=== PATIENT | male | born 1960 | race African-American/Black ===

== ENCOUNTER 2018-12-05 19:02 | Inpatient (IN) | payer MEDICARE, OTHER ==
--- NOTE | 2018-12-05 19:39 | ED Physician Chart ---
ED Chief Complaint/HPI - Patient Information Date Seen:: 12/05/18 Time Seen:: 19:10 Chief Complaint:: Weakness History of Present Illness:: onset x 3 days of weakness, failure to thrive, and poor oral intake; no report of LOC, ALOC, AMS, H/As, S/T, neck pain, cough, C/P, SOB, Abd. Pain, N/V/D/C, fever, chills, or urinary s/s Allergies:: Allergies Allergy/AdvReac Type Severity Reaction Status Date / Time No Known Allergies Allergy Verified 12/05/18 19:14 Vitals:: Vital Signs - 8 hr 12/05/18 19:14 Temp 98.9 F HR 75 RR 16 BP 140/95 O2 Sat % 99 Historian:: Patient, EMS Review:: Nurse's Note Reviewed, Old Chart Reviewed, EMS run form Reviewed ED Review of Systems - Review of Systems General/Constitutional: No fever, No chills, No weight loss, Weakness, No diaphoresis, No edema, No loss of appetite Skin: No skin lesions, No rash, No bruising Head: No headache, No light-headedness Eyes: No loss of vision, No pain, No diplopia ENT: No earache, No nasal drainage, No sore throat, No tinnitus Neck: No neck pain, No swelling, No thyromegaly, No stiffness, No mass noted Cardio Vascular: No chest pain, No palpitations, No PND, No orthopnea, No edema Pulmonary: No SOB, No cough, No sputum, No wheezing GI: No nausea, No vomiting, No diarrhea, No pain, No melena, No hematochezia, No constipation, No hematemesis G/U: No dysuria, No frequency, No hematuria, No nacturia Musculoskeletal: No bone or joint pain, No back pain, No muscle pain Endocrine: No polyuria, No polydipsia Psychiatric: No prior psych history, No depression, No anxiety, No suicidal ideation, No homicidal ideation, No auditory hallucination, No visual hallucination Hematopoietic: No bruising, No lymphadenopathy Allergic/Immuno: No urticaria, No angioedema Neurological: No syncope, No focal symptoms, Weakness, No paresthesia, No headache, No seizure, No dizziness, No confusion, No vertigo ED Past Medical History - Past Medical History Obtainable: Yes Past Medical History: HTN, Dyslipidemia Family History: HTN Social History: Non Smoker, No Alcohol, No Drug Use, Single, Care Facility Surgical History: None Psychiatricy History: None Medication: Reviewed Family Medical History - Family Member Mother History Unknown: Yes ED Physical Exam - Physical Examination General/Constitutional: Awake, Well-developed, well-nourished, Alert, No distress, GCS 15, Non-toxic appearing, Ambulatory Head: Atraumatic Eyes: Lids, conjuctiva normal, PERRL, EOMI Skin: Nl inspection, No rash, No skin lesions, No ecchymosis, No lymphadenopathy Other Skin comments:: Poor Turgor with dry MM ENMT: External ears, nose nl, TM canals nl, Nasal exam nl, Lips, teeth, gums nl , Oropharynx nl, Tonsils nl Neck: Nontender, Full ROM w/o pain, No JVD, No nuchal rigidity, No bruit, No mass, No stridor Respiratory: Nl effort/Exclusion, Clear to Auscultation, No Wheeze/Rhonchi/Rales Cardio Vascular: RRR, No murmur, gallop, rubs, NL S1 S2, Carotid/Femoral/Distal pulses equal bilaterally GI: No tenderness/rebounding/guarding, No organomegaly, No hernia, Normal BS's, Nondistended, No mass/bruits, No McBurney tenderness, Rectum exam nl Other GI comments:: no pulsatile masses : No CVA tenderness Extremities: No tenderness or effusion, Full ROM, normal strength in all extremities, No edema, Normal digits & nails Neuro/Psych: Alert/oriented, DTR's symmetric, Normal sensory exam, Normal motor strength, Judgement/insight normal, Mood normal, Normal gait, No focal deficits Misc: Normal back, No paraspinal tenderness ED Labs/Radiology/EKG Results - Lab Results Comments:: Reviewed - Radiology Results Comments:: CXR: NAD - EKG Interpretations EKG Time:: 19:47 Rate & Rhythm: 74; NSR Comments:: non-specific st-t changes ED Septic Shock - . Is Septic Shock (SBP<90, OR Lactate>4 mmol\L) present?: No - <6hrs of presentation: Vital Signs: Vital Signs - 8 hr 12/05/18 19:14 Temp 98.9 F HR 75 RR 16 BP 140/95 O2 Sat % 99 ED Reassessment (Disposition) - Reassessment Reassessment Condition:: Improved - Diagnosis Diagnosis:: Weakness; Failure to Thrive; Poor Oral Intake; HTN; Dehydration - Aftercare/Follow up Instructions Aftercare/Follow-Up Instructions:: Counseled pt regarding lab results/diagnosis & need follow up, Counseled pt & family regarding lab results/diagnosis & need follow up - Patient Disposition Discharge/Transfer:: Acute Care w/in this hosp Accepting Physician:: Dr. Dilan Yi Time Called:: 2099 Time Responded:: 21:00 Admitted to:: Med/Surg Spoke to:: Dr. Dilan Yi Admitting Medical Physician:: Dr. Dilan Yi Condition at Disposition:: Stable, Improved
[2018-12-05 19:58] LABS: % BASOPHILS 0.3 % (0.0-2.0); % EOSINOPHILS 2.8 % (0.0-5.0); % LYMPHOCYTES 18.5 % (20.0-50.0); % MONOCYTES 4.5 % (2.0-10.0); % NEUTROPHILS 73.9 % (40.0-80.0); EOSINOPHILE ABSOLUTE 0.2 Th/cmm (0.1-0.4); HEMATOCRIT 33.7 % (41.0-60); LYMPHOCYTE ABSOLUTE 1.3 Th/cmm (1.5-3.0); MEAN CELL VOLUME 86.4 fl (80-99); MEAN CORPUSCULAR HEMOGLOBIN 28.3 pg (26.0-30.0); MEAN CORPUSCULAR HGB CONC 32.7 pg (28.0-36.0); MEAN PLATELET VOLUME 7.2 fl; MONOCYTE ABSOLUTE 0.3 Th/cmm (0.3-1.0); NEUTROPHILE ABSOLUTE 5.3 Th/cmm (1.8-8.0); PLATELET COUNT 300 Th/cmm (150-400); RED CELL DISTRIBUTION WIDTH 14.8 % (11.5-20.0); WHITE BLOOD COUNT 7.1 Th/cmm (4.8-10.8)
[2018-12-05 20:10] LABS: INR 0.95 (0.5-1.4); PROTHROMBIN TIME (TEST) 9.9 SECONDS (9.5-11.5)
[2018-12-05 20:11] LABS: ALB/GLOB RATIO 1.1 (1.0-1.8); ALBUMIN 4.1 gm/dL (4.2-5.5); ALKALINE PHOSPHATASE 62 U/L (34-104); ANION GAP 11.4 (7.0-16.0); BILIRUBIN,TOTAL 0.5 mg/dL (0.3-1.0); BUN - UREA NITROGEN 24 mg/dL (7-25); CALCIUM SERUM 9.6 mg/dL (8.6-10.3); CARBON DIOXIDE 24.8 mEq/L (21.0-31.0); CHLORIDE 106 mEq/L (98-107); CREATININE - SERUM 1.3 mg/dL (0.7-1.3); CREATININE KINASE 137 U/L (30-223); GFR AFRICAN-AMERICAN > 60.0 ml/min (>90); GFR NON AFRICAN-AMERICAN > 60.0 ml/min; GLUCOSE 134 mg/dL (70-105); POTASSIUM SERUM 4.2 mEq/L (3.5-5.1); SGOT 11 U/L (13-39); SGPT/ALT 16 U/L (7-52); SODIUM SERUM 138 mEq/L (136-145); TOTAL PROTEIN,SERUM 7.7 gm/dL (6.0-8.3)
[2018-12-05 20:24] LABS: TROP I < 0.01 ng/mL (0.01-0.05)
[2018-12-05 20:57] LABS: URINE SOURCE MIDSTREAM
[2018-12-05 20:59] LABS: URINE BILIRUBIN NEGATIVE (NEGATIVE); URINE BLOOD MODERATE (NEGATIVE); URINE GLUCOSE (UA) NEGATIVE (NEGATIVE); URINE KETONE NEGATIVE (NEGATIVE); URINE LEUKOCYTE ESTERASE NEGATIVE (NEGATIVE); URINE MICROSCOPIC INDICATED? YES; URINE NITRATE NEGATIVE (NEGATIVE); URINE PH 5.5 (4.6 - 8.0); URINE PROTEIN 30 mg/dL (NEGATIVE); URINE UROBILINOGEN 0.2 E.U./dL (0.2 - 1.0)
[2018-12-05] MEDS ORDERED: Sodium Chloride 0.9% 1,000 ML IV ONE (21:02)
[2018-12-05 21:16] LABS: URINE CLARITY CLEAR (CLEAR); URINE COLOR STRAW
[2018-12-05 21:22] LABS: URINE BACTERIA NONE SEEN /hpf (NONE SEEN); URINE EPITHELIAL CELLS RARE /lpf (FEW); URINE RBC NONE SEEN /hpf (0-5); URINE WBC NONE SEEN /hpf (0-5)
[2018-12-05 21:25] LABS: AMYLASE SERUM 164 U/L (29-103); LIPASE 133 U/L (11-82)
[2018-12-05] MEDS ORDERED: Pneumococcal Vaccine 0.5 mL Vial IM ONE (23:05)
[2018-12-06 06:39] LABS: % BASOPHILS 0.5 % (0.0-2.0); % EOSINOPHILS 2.7 % (0.0-5.0); % LYMPHOCYTES 32.3 % (20.0-50.0); % MONOCYTES 6.2 % (2.0-10.0); % NEUTROPHILS 58.3 % (40.0-80.0); EOSINOPHILE ABSOLUTE 0.1 Th/cmm (0.1-0.4); HEMATOCRIT 32.2 % (41.0-60); HEMOGLOBIN 10.5 gm/dL (12-16); LYMPHOCYTE ABSOLUTE 1.7 Th/cmm (1.5-3.0); MEAN CELL VOLUME 85.7 fl (80-99); MEAN CORPUSCULAR HEMOGLOBIN 27.9 pg (26.0-30.0); MEAN CORPUSCULAR HGB CONC 32.5 pg (28.0-36.0); MONOCYTE ABSOLUTE 0.3 Th/cmm (0.3-1.0); NEUTROPHILE ABSOLUTE 3.2 Th/cmm (1.8-8.0); PLATELET COUNT 331 Th/cmm (150-400); RED BLOOD COUNT 3.75 Mil/cmm (4.30-5.70); RED CELL DISTRIBUTION WIDTH 14.7 % (11.5-20.0); WHITE BLOOD COUNT 5.3 Th/cmm (4.8-10.8)
[2018-12-06 07:04] LABS: BUN - UREA NITROGEN 22 mg/dL (7-25); CALCIUM SERUM 9.1 mg/dL (8.6-10.3); CARBON DIOXIDE 24.1 mEq/L (21.0-31.0); CHLORIDE 107 mEq/L (98-107); CREATININE - SERUM 1.4 mg/dL (0.7-1.3); GFR AFRICAN-AMERICAN > 60.0 ml/min (>90); GFR NON AFRICAN-AMERICAN 55.3 ml/min; GLUCOSE 124 mg/dL (70-105); POTASSIUM SERUM 4.1 mEq/L (3.5-5.1); SODIUM SERUM 139 mEq/L (136-145)
--- NOTE | 2018-12-06 08:29 | Diagnostic Imaging Report ---
CHEST X-RAY: AP view INDICATION: pain COMPARISON: None FINDINGS: Increased right basal lung markings are seen along the right heart border. No pleural effusions. Heart size is normal. Degenerative changes of the spine are noted. IMPRESSION: Increased right basal lung markings along the right heart border. Findings may be due to atelectasis however infiltrate in the pneumonitis or postobstructive pneumonitis cannot be excluded. Short-term follow-up is recommended.
--- NOTE | 2018-12-07 15:58 | History & Physical ---
ADMIT DATE: 12/05/2018 CHIEF COMPLAINT: Generalized weakness, failure to thrive, and poor oral intake. However, the patient was admitted with this diagnosis, but he was able to eat more than 100% of his calorie intake. He is alert and awake. During the hospital stay, his blood pressure was noted to be very high, it was 100 and it went up to 192/85. Vasotec and clonidine were started. Cardiology consult was called. PAST MEDICAL HISTORY: Includes questionable hypertension, was not on any medication, and dyslipidemia. FAMILY HISTORY: Hypertension. SOCIAL HISTORY: The patient lives at nursing facility. No history of smoking, alcohol or drug use. He is single. PAST SURGICAL HISTORY: None. PSYCHIATRIC HISTORY: None. FAMILY HISTORY: As mentioned above, hypertension. REVIEW OF SYSTEMS: GENERAL: The patient denies any fever or chills. HEENT: No diplopia, no photophobia, no sore throat. RESPIRATORY: No cough, no shortness of breath. CVS: No chest pain. No palpitation. GASTROINTESTINAL: No nausea, no vomiting, no diarrhea, no constipation. GENITOURINARY: No dysuria. NEUROLOGIC: No headache, no dizziness, no focal weakness. PHYSICAL EXAMINATION: VITAL SIGNS: Current vital signs shows temperature is 98.2, pulse 78, respirations 18, blood pressure is 157/63, oxygen saturation 98%. GENERAL: The patient is comfortable lying in the bed, not in acute distress. HEENT: Head is normocephalic, atraumatic. Oral cavity moist, pink tongue. NECK: Supple, no JVD, no carotid bruit. Trachea midline. CHEST: Bilateral vesicular breath sounds. No crackles or wheezing. No adventitious sounds. HEART: S1, S2 within normal limit. Loud S1, S2 heart sounds. No murmur, no gallop. ABDOMEN: Soft, nontender, nondistended. Bowel sounds present. EXTREMITIES: No cyanosis, no clubbing, no edema. NEUROLOGICAL: Alert and awake, oriented x 3. No focal deficit. LABORATORY DATA: Current lab shows WBC of 5300, hemoglobin 10.5, hematocrit 32.2, platelets are 331,000, neutrophils 58.3%. Sodium 139, potassium 4.1, chloride 107, bicarbonate is 24, BUN is 22, creatinine 1.4, glucose is 124. Blood cultures are negative. Chest x-ray shows no acute disease. IMPRESSION: 1. Emergent hypertension. There is a mild azotemia. 2. Azotemia. 3. Suspect pneumonia. 4. Dyslipidemia. PLAN AND RECOMMENDATIONS: We will continue losartan and Vasotec. Add Levaquin. We will monitor for 1-2 days and depending on the clinical scenario we will decide further plan. Consultation called, Dr. Eugene Yi. JOB# [id number]
[2018-12-07] MEDS: Levofloxacin 500mg/100mL 500 MG/100 ML BAG IV SCH (17:52)
--- NOTE | 2018-12-08 02:04 | Consultation ---
DATE OF CONSULTATION: 12/06/[address] Jesse Yi. HISTORY OF PRESENT ILLNESS: This is a 58-year-old -[place] male patient who was brought to the hospital because of poor appetite and failure to thrive. In the Emergency Room, the patient was found to have uncontrolled hypertension, anemia, diabetes, and CKD, stage II. Following this, the patient is admitted. Cardiac consult is requested. PAST MEDICAL HISTORY: Hypertension; anemia; chronic kidney disease, stage II; and diabetes mellitus type 2. FAMILY HISTORY: Unremarkable. SOCIAL HISTORY: No history of smoking, alcohol abuse. ALLERGIES: No known allergies. PHYSICAL EXAMINATION: VITAL SIGNS: Blood pressure 170/90, pulse 70, and respirations 20. HEAD: Normocephalic. No lumps or bumps. EYES: Pupils equal, reactive to light. Fundi show AV nicking, sclerae white, conjunctivae pink. NECK: Carotid 2+. Normal upstroke. JVD flat. Thyroid not palpable. Lymph nodes not palpable. CHEST: Shows increased AP diameter. No kyphosis, scoliosis. LUNGS: Bilateral bronchovesicular breath sounds. HEART: PMI fifth intercostal space with lateral to midclavicular line. S1, S2. No S3, S4, soft systolic murmur. ABDOMEN: Soft. Liver, spleen not palpable. No organomegaly. Bowel sounds active. NEUROLOGIC: Unremarkable. EXTREMITIES: Peripheral pulses 2+. No pedal edema. CLINICAL IMPRESSION: Hypertension, uncontrolled; iron deficiency anemia; diabetes mellitus type 2; and diabetic CKD, stage II. PLAN: The patient to get antihypertensive medication, control the diet. The patient has been advised further compliance of medication and diet for hypertension and diabetes. JOB# [id number]
--- NOTE | 2018-12-08 09:26 | Diagnostic Imaging Report ---
Renal ultrasound HISTORY: azotemia. COMPARISON: None Technique: Sonography of the kidneys and urinary bladder was performed in multiple planes. FINDINGS: The right kidney measures 11.2 x 7.1 cm. The left kidney measures 11.8 x 7.8 cm. No evidence of focal lesions or hydronephrosis. There is elevated post void residual bladder volume of 158 ML. IMPRESSION: No evidence of hydronephrosis Elevated postvoid residual bladder volume of 158 mL's. Clinical correlation and further assessment of this finding is recommended.
--- NOTE | 2018-12-08 13:47 | General Progress Note ---
Subjective - Review of Systems Service Date: 12/08/18 Subjective: Is no complaint of chest pain or shortness of breath Objective - Results Result Diagrams: 12/06/18 05:34 12/06/18 05:34 Recent Labs: Laboratory Last Values WBC 5.3 Th/cmm (4.8-10.8) 12/06/18 05:34 RBC 3.75 Mil/cmm (4.30-5.70) L 12/06/18 05:34 Hgb 10.5 gm/dL (12-16) L 12/06/18 05:34 Hct 32.2 % (41.0-60) L 12/06/18 05:34 MCV 85.7 fl (80-99) 12/06/18 05:34 MCH 27.9 pg (26.0-30.0) 12/06/18 05:34 MCHC Differential 32.5 pg (28.0-36.0) 12/06/18 05:34 RDW 14.7 % (11.5-20.0) 12/06/18 05:34 Plt Count 331 Th/cmm (150-400) 12/06/18 05:34 MPV 7.0 fl 12/06/18 05:34 Neutrophils % 58.3 % (40.0-80.0) 12/06/18 05:34 Lymphocytes % 32.3 % (20.0-50.0) 12/06/18 05:34 Monocytes % 6.2 % (2.0-10.0) 12/06/18 05:34 Eosinophils % 2.7 % (0.0-5.0) 12/06/18 05:34 Basophils % 0.5 % (0.0-2.0) 12/06/18 05:34 PT 9.9 SECONDS (9.5-11.5) 12/05/18 19:40 INR 0.95 (0.5-1.4) 12/05/18 19:40 PTT (Actin FS) 29.1 SECONDS (26.0-38.0) 12/05/18 19:40 Sodium 139 mEq/L (136-145) 12/06/18 05:34 Potassium 4.1 mEq/L (3.5-5.1) 12/06/18 05:34 Chloride 107 mEq/L (98-107) 12/06/18 05:34 Carbon Dioxide 24.1 mEq/L (21.0-31.0) 12/06/18 05:34 Anion Gap 12.0 (7.0-16.0) 12/06/18 05:34 BUN 22 mg/dL (7-25) 12/06/18 05:34 Creatinine 1.4 mg/dL (0.7-1.3) H 12/06/18 05:34 Est GFR ( Amer) > 60.0 ml/min (>90) 12/06/18 05:34 Est GFR (Non-Af Amer) 55.3 ml/min 12/06/18 05:34 BUN/Creatinine Ratio 15.7 12/06/18 05:34 Glucose 124 mg/dL (70-105) H 12/06/18 05:34 Whole Bld Lactic Acid 0.85 mmol/L (0.60-1.99) 12/05/18 19:40 Calcium 9.1 mg/dL (8.6-10.3) 12/06/18 05:34 Total Bilirubin 0.5 mg/dL (0.3-1.0) 12/05/18 19:40 AST 11 U/L (13-39) L 12/05/18 19:40 ALT 16 U/L (7-52) 12/05/18 19:40 Alkaline Phosphatase 62 U/L (34-104) 12/05/18 19:40 Creatine Kinase 137 U/L (30-223) 12/05/18 19:40 Troponin I < 0.01 ng/mL (0.01-0.05) L 12/05/18 19:40 Total Protein 7.7 gm/dL (6.0-8.3) 12/05/18 19:40 Albumin 4.1 gm/dL (4.2-5.5) L 12/05/18 19:40 Globulin 3.6 gm/dL 12/05/18 19:40 Albumin/Globulin Ratio 1.1 (1.0-1.8) 12/05/18 19:40 Amylase 164 U/L (29-103) H 12/05/18 19:40 Lipase 133 U/L (11-82) H 12/05/18 19:40 TSH 0.90 uIU/ml (0.34-5.60) 12/05/18 19:21 Urine Source MIDSTREAM 12/05/18 20:15 Urine Color STRAW 12/05/18 20:15 Urine Clarity CLEAR (CLEAR) 12/05/18 20:15 Urine pH 5.5 (4.6 - 8.0) 12/05/18 20:15 Ur Specific [place] 1.025 (1.005-1.030) 12/05/18 20:15 Urine Protein 30 mg/dL (NEGATIVE) H 12/05/18 20:15 Urine Glucose (UA) NEGATIVE mg/dL (NEGATIVE) 12/05/18 20:15 Urine Ketones NEGATIVE mg/dL (NEGATIVE) 12/05/18 20:15 Urine Blood MODERATE (NEGATIVE) H 12/05/18 20:15 Urine Nitrate NEGATIVE (NEGATIVE) 12/05/18 20:15 Urine Bilirubin NEGATIVE (NEGATIVE) 12/05/18 20:15 Urine Urobilinogen 0.2 E.U./dL (0.2 - 1.0) 12/05/18 20:15 Ur Leukocyte Esterase NEGATIVE (NEGATIVE) 12/05/18 20:15 Urine RBC NONE SEEN /hpf (0-5) 12/05/18 20:15 Urine WBC NONE SEEN /hpf (0-5) 12/05/18 20:15 Ur Epithelial Cells RARE /lpf (FEW) 12/05/18 20:15 Urine Bacteria NONE SEEN /hpf (NONE SEEN) 12/05/18 20:15 RPR NONREACTIVE (NONREACTIVE) 12/05/18 19:40 - Physical Exam Vitals and I&O: Vital Signs Temp 97.8 F 12/08/18 12:00 Pulse 70 12/08/18 12:00 Resp 18 12/08/18 12:00 BP 140/82 12/08/18 12:00 Pulse Ox 98 12/08/18 12:00 Intake & Output 12/07/18 12/08/18 12/08/18 18:59 06:59 18:59 Intake Total 600 Output Total 30 Balance 570 Weight (lbs) 108.862 kg Intake: Oral 600 Tube Feeding 0 TPN/PPN 0 Blood Product 0 Lipid 0 Albumin 0 Other 0 Output: Gastric Drainage 0 Urine 30 Stool 0 Urine/Stool Mix 0 Emesis 0 Hemodialysis 0 Other 0 Other: # Voids 1 # Bowel Movements 0 Weight Source Chair scale Active Medications: Current Medications Enalapril Maleate (Vasotec) 5 mg PO DAILY [facility] Stop: 02/05/19 08:59 Last Admin: 12/08/18 09:31 Dose: 5 mg Levofloxacin (Levaquin Pb) 500 mg in 100 mls @ 100 mls/hr IV Q24HR ANGELA Stop: 02/05/19 15:59 Last Admin: 12/07/18 17:52 Dose: 100 mls/hr Losartan Potassium (Cozaar) 100 mg PO DAILY ANGELA Stop: 02/06/19 08:59 Last Admin: 12/08/18 09:31 Dose: 100 mg Assessment/Plan - Assessment Assessment: Hypertension And deficiency anemia Diabetes mellitus type 2 Diabetic C kidney stage II - Plan Plan: Continue present management control the blood pressure ambulate the patient Nutritional Asmnt/Malnutr-PDOC - Dietary Evaluation Malnutrition Findings (Please click <Entered> for more info): Nutritional Asmnt/Malnutrition Start: 12/06/18 14: 00 Text: Status: Complete Freq: Protocol: Document 12/06/18 14:00 [email or web address] (Rec: 12/06/18 14:08 [email or web address]) Nutritional Asmnt/Malnutrition Patient General Information Nutritional Screening High Risk Diagnosis failure to thrive, anemia Pertinent Medical Hx/Surgical Hx HTN, dyslipidemia Subjective Information Pt was seen eating lunch at time of visit. Pt doesn't like hospital food but said "don't stop sending it" because he will eat and reports good appetite. Lunch was seen almost finished. Current Diet Order/ Nutrition Support regular Pertinent Medications reviewed Pertinent Labs 12/06 cr 1.4, glucose 124 12/05 glucose 134, ab 4.1 Nutritional Hx/Data Height 1.78 m Height (Calculated Centimeters) 177.8 Current Weight (lbs) 108.862 kg Weight (Calculated Kilograms) 108.9 Weight (Calculated Grams) 051802.2 [place] Body Weight 166 Body Mass Index (BMI) 34.4 Weight Status Obese GI Symptoms GI Symptoms None Last BM not indicated Difficult in: None Food Allergies No Skin Integrity/Comment: intact Current %PO Good (75-100%) Estimated Nutritional Goals BEE in Kcals: Adj wt of IBW Calories/Kcals/Kg 25-30 Kcals Calculated 1502-0536 Protein: Adj wt of IBW Protein g/k.8-1 Protein Calculated 67-83 Fluid: ml 8612-5301 (1ml/kcal) Nutritional Problem No current Nutrition Prob Problem No nutrition diagnosis at this time Malnutrition Alert Is there a minimum of two criteria No selected? Query Text:Check all the applicable criteria. A minimum of two criteria are recommended for diagnosis of either severe or non-severe malnutrition. Malnutrition Related to Morbid Obesity Malnutrition related to morbid obesity No Intervention/Recommendation Comments 1. Continue with regular diet as ordered. 2. Monitor PO intake, wt, labs and skin integrity 3. F/U as moderate risk in 3-5 days Expected Outcomes/Goals Expected Outcomes/Goals 1. PO intake to meet at least 75% of nutritional needs. 2. Wt stability, skin to remain intact, labs to approach WNL. Reviewed by Tamela Fernandez RD
[2018-12-08] MEDS: Levofloxacin 500mg/100mL 500 MG/100 ML BAG IV SCH (15:44)
[2018-12-08 22:22] LABS: INF A SCREEN NEG FOR INF A; INF B SCREEN NEG FOR INF B
--- NOTE | 2018-12-08 22:39 | Consultation ---
DATE OF CONSULTATION: 12/08/2018 ATTENDING: Dr. Jesse Yi. PSYCHIATRIC CLINICAL NURSE SPECIALIST: Dr. Cj Poole. REASON FOR CONSULTATION: Acute kidney failure, electrolyte imbalance, and fluid management. HISTORY OF PRESENT ILLNESS: This is a 58-year-old -[place] male with past medical history of hypertension, who came in because of very poor appetite. Three days prior to admission, patient's appetite declined. As a consequence, he developed gradual weakness. A few hours prior to admission, his weakness eventually became generalized. He was then brought to the Emergency Room. His blood pressure upon arrival was 177/89. Chest x-ray showed possible pneumonitis or postobstructive pneumonitis. His BUN/creatinine were 24/1.3 and this increased to 22/1.4 today. Renal ultrasound revealed elevated postvoid residual of 158 mL. He had no fever or chills, nausea and vomiting, abdominal pain, diarrhea, bloating, dysuria, hematuria, and hematemesis. PAST MEDICAL HISTORY: 1. Essential hypertension. 2. Morbid obesity. 3. Dyslipidemia. MEDICATIONS: Currently on clonidine, enalapril, levofloxacin, losartan. ALLERGIES: No known drug allergies. SOCIAL HISTORY: He still smokes approximately 2 cigarettes a day. He drinks alcoholic beverages occasionally. 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 FAMILY HISTORY: Noncontributory to present illness. REVIEW OF SYSTEMS: GENERAL: As mentioned, he gradually developed weakness. Appetite had been poor. No fever or chills. HEENT: No mention of headaches, no dizziness. CARDIORESPIRATORY: History of hypertension. At this point, no chest pain, palpitations, diaphoresis, cough, or shortness of breath. GASTROINTESTINAL: No nausea and vomiting, abdominal pain or cramping, hematemesis, melena, hematochezia, nor diarrhea. However, he has a very poor appetite. MUSCULOSKELETAL: Multiple joint arthralgias. GENITOURINARY: History of mild kidney injury. At this point, there is no dysuria, hematuria, or retention. HEMATOLOGIC: He has anemia of chronic disease. NEUROPSYCHIATRIC: No syncopal episode. No seizure activity. He has some form of neuropathy. ENDOCRINE: No diabetes. No thyroid abnormalities, but has dyslipidemia. PHYSICAL EXAMINATION: GENERAL: The patient is alert, verbal, and comfortable. VITAL SIGNS: Blood pressure now is 162/80, pulse 71, temperature 97.6 degrees. SKIN: Poor turgor, warm, no rash, no jaundice appreciated. HEENT: Head normocephalic, atraumatic. Eyes: Extraocular muscles intact. Pupils equal, round, reactive to light and accommodates. Anicteric sclerae. Pale conjunctivae. Nose, midline nasal septum. Mouth, dry mucosa with adequate dentition. NECK: Supple, no adenopathy, no thyromegaly, no bruits. Trachea palpated in the midline. CHEST AND CARDIOVASCULAR: S1, S2, distant heart sounds, but no rub, murmur, nor gallop appreciated. Point of maximal impulse fifth intercostal space, left midclavicular line. No abdominal or femoral bruits appreciated. LUNGS: Equal expansion. No use of accessory muscles. No supraclavicular retractions. Decreased breath sounds, scattered rhonchi, but no rales nor wheezes appreciated. ABDOMEN: Obese, soft, positive for bowel sounds. No bruits either diastolic or systolic. RECTAL: The patient refused. GENITOURINARY: Normal appearing male genitalia. MUSCULOSKELETAL: No effusions present in his joints with adequate range of motion. EXTREMITIES: No evidence of edema, cyanosis nor clubbing with palpable femoral, popliteal, and dorsalis pedis pulses. NEUROLOGIC: The patient is alert, verbal, motor is 5/5. Cranial nerves 3-12 intact. Sensory intact. Labs revealed . IMPRESSION: 1. Acute kidney injury, MDRD GFR of greater than 60 mL per minute. Physical examination did reveal poor skin turgor with dry oral mucosa. His history included very poor oral intake, especially fluid intake. Urinalysis showed very concentrated urine. These factors are characteristics of underlying dehydration. Thus, he may have developed prerenal azotemia. Another consideration would include obstructive uropathy with history of elevated post-void residuals even though he does not have any evidence of bilateral hydronephrosis. 2. Elevated post-void residual. Possibly obstructive uropathy secondary to BPH or some form of tumor/mass versus a neurogenic bladder. 3. Essential hypertension. 4. Morbid obesity. 5. Dyslipidemia. PLAN: 1. Repeat bladder ultrasound to follow up residual volume. 2. Urine sodium, eosinophils, and creatinine. 3. Urine microalbumin to creatinine ratio. 4. Follow up electrolytes as well as hemoglobin A1c. 5. Avoid combination of ARB and ZACKERY inhibitor as much as possible. 6. Emphasized to the patient to stop smoking. 7. Encourage the patient to increase fluid intake. [facility]# [id number]
--- NOTE | 2018-12-09 02:49 | Infectious Disease Prog Note ---
Infectious Disease Subjective - Review of Systems Service Date: 12/08/18 Subjective: There is no new change, no fever. BP better Controlled. Infectious Disease Objective - Results Result Diagrams: 12/06/18 05:34 12/06/18 05:34 Recent Labs: Laboratory Last Values WBC 5.3 Th/cmm (4.8-10.8) 12/06/18 05:34 RBC 3.75 Mil/cmm (4.30-5.70) L 12/06/18 05:34 Hgb 10.5 gm/dL (12-16) L 12/06/18 05:34 Hct 32.2 % (41.0-60) L 12/06/18 05:34 MCV 85.7 fl (80-99) 12/06/18 05:34 MCH 27.9 pg (26.0-30.0) 12/06/18 05:34 MCHC Differential 32.5 pg (28.0-36.0) 12/06/18 05:34 RDW 14.7 % (11.5-20.0) 12/06/18 05:34 Plt Count 331 Th/cmm (150-400) 12/06/18 05:34 MPV 7.0 fl 12/06/18 05:34 Neutrophils % 58.3 % (40.0-80.0) 12/06/18 05:34 Lymphocytes % 32.3 % (20.0-50.0) 12/06/18 05:34 Monocytes % 6.2 % (2.0-10.0) 12/06/18 05:34 Eosinophils % 2.7 % (0.0-5.0) 12/06/18 05:34 Basophils % 0.5 % (0.0-2.0) 12/06/18 05:34 PT 9.9 SECONDS (9.5-11.5) 12/05/18 19:40 INR 0.95 (0.5-1.4) 12/05/18 19:40 PTT (Actin FS) 29.1 SECONDS (26.0-38.0) 12/05/18 19:40 Sodium 139 mEq/L (136-145) 12/06/18 05:34 Potassium 4.1 mEq/L (3.5-5.1) 12/06/18 05:34 Chloride 107 mEq/L (98-107) 12/06/18 05:34 Carbon Dioxide 24.1 mEq/L (21.0-31.0) 12/06/18 05:34 Anion Gap 12.0 (7.0-16.0) 12/06/18 05:34 BUN 22 mg/dL (7-25) 12/06/18 05:34 Creatinine 1.4 mg/dL (0.7-1.3) H 12/06/18 05:34 Est GFR ( Amer) > 60.0 ml/min (>90) 12/06/18 05:34 Est GFR (Non-Af Amer) 55.3 ml/min 12/06/18 05:34 BUN/Creatinine Ratio 15.7 12/06/18 05:34 Glucose 124 mg/dL (70-105) H 12/06/18 05:34 Whole Bld Lactic Acid 0.85 mmol/L (0.60-1.99) 12/05/18 19:40 Calcium 9.1 mg/dL (8.6-10.3) 12/06/18 05:34 Total Bilirubin 0.5 mg/dL (0.3-1.0) 12/05/18 19:40 AST 11 U/L (13-39) L 12/05/18 19:40 ALT 16 U/L (7-52) 12/05/18 19:40 Alkaline Phosphatase 62 U/L (34-104) 12/05/18 19:40 Creatine Kinase 137 U/L (30-223) 12/05/18 19:40 Troponin I < 0.01 ng/mL (0.01-0.05) L 12/05/18 19:40 Total Protein 7.7 gm/dL (6.0-8.3) 12/05/18 19:40 Albumin 4.1 gm/dL (4.2-5.5) L 12/05/18 19:40 Globulin 3.6 gm/dL 12/05/18 19:40 Albumin/Globulin Ratio 1.1 (1.0-1.8) 12/05/18 19:40 Amylase 164 U/L (29-103) H 12/05/18 19:40 Lipase 133 U/L (11-82) H 12/05/18 19:40 TSH 0.90 uIU/ml (0.34-5.60) 12/05/18 19:21 Urine Source MIDSTREAM 12/05/18 20:15 Urine Color STRAW 12/05/18 20:15 Urine Clarity CLEAR (CLEAR) 12/05/18 20:15 Urine pH 5.5 (4.6 - 8.0) 12/05/18 20:15 Ur Specific [place] 1.025 (1.005-1.030) 12/05/18 20:15 Urine Protein 30 mg/dL (NEGATIVE) H 12/05/18 20:15 Urine Glucose (UA) NEGATIVE mg/dL (NEGATIVE) 12/05/18 20:15 Urine Ketones NEGATIVE mg/dL (NEGATIVE) 12/05/18 20:15 Urine Blood MODERATE (NEGATIVE) H 12/05/18 20:15 Urine Nitrate NEGATIVE (NEGATIVE) 12/05/18 20:15 Urine Bilirubin NEGATIVE (NEGATIVE) 12/05/18 20:15 Urine Urobilinogen 0.2 E.U./dL (0.2 - 1.0) 12/05/18 20:15 Ur Leukocyte Esterase NEGATIVE (NEGATIVE) 12/05/18 20:15 Urine RBC NONE SEEN /hpf (0-5) 12/05/18 20:15 Urine WBC NONE SEEN /hpf (0-5) 12/05/18 20:15 Ur Epithelial Cells RARE /lpf (FEW) 12/05/18 20:15 Urine Bacteria NONE SEEN /hpf (NONE SEEN) 12/05/18 20:15 RPR NONREACTIVE (NONREACTIVE) 12/05/18 19:40 Influenza A (Rapid) NEG FOR INF A 12/08/18 21:51 Influenza B (Rapid) NEG FOR INF B 12/08/18 21:51 - Physical Exam Vitals and I&O: Vital Signs Temp 98.9 F 12/08/18 20:00 Pulse 84 12/08/18 20:19 Resp 18 12/08/18 20:00 BP 123/72 12/08/18 20:19 Pulse Ox 99 12/08/18 20:00 Intake & Output 12/08/18 12/08/18 12/09/18 06:59 18:59 06:59 Intake Total 720 200 Balance 720 200 Weight (lbs) 108.862 kg 108.862 kg Intake: Intake, IV Amount 100 Levofloxacin 500mg/100mL 100 500 mg In 100 ml @ 100 mls/hr IV Q24HR COUNTS INCLUDE 234 BEDS AT THE [facility] Rx#: [id number] Oral 720 100 Other: # Voids 3 1 # Bowel Movements 0 0 Weight Source Bedscale Bedscale Active Medications: Current Medications Hydralazine HCl (Apresoline) 25 mg PO BID COUNTS INCLUDE 234 BEDS AT THE [facility] Stop: 02/06/19 19:29 Last Admin: 12/08/18 20:19 Dose: 25 mg Levofloxacin (Levaquin Pb) 500 mg in 100 mls @ 100 mls/hr IV Q24HR [facility] Stop: 02/05/19 15:59 Last Infusion: 12/08/18 20:10 Dose: Infused Losartan Potassium (Cozaar) 100 mg PO DAILY [facility] Stop: 02/06/19 08:59 Last Admin: 12/08/18 09:31 Dose: 100 mg General: no acute distress, well developed, well nourished HEENT: atraumatic, normocephalic, PERRLA Neck: supple, no thyromegaly Cardiovascular: S1S2, regular Lungs: clear to auscultation bilaterally, clear to percussion Abdomen: soft, no tender, no distended Extremities: no cyanosis, no clubbing, no edema Neurological: awake, alert Skin: intact Infectious Disease Assmt/Plan - Assessment Assessment: 1. Emergent hypertension. There is a mild azotemia. 2. Azotemia. 3. Suspect pneumonia. 4. Dyslipidemia. - Plan Plan: Continue the same treatment. Check labs in AM. Nutritional Asmnt/Malnutr-PDOC - Dietary Evaluation Malnutrition Findings (Please click <Entered> for more info): Nutritional Asmnt/Malnutrition Start: 12/06/18 14: 00 Text: Status: Complete Freq: Protocol: Document 12/06/18 14:00 [email or web address] (Rec: 12/06/18 14:08 [email or web address]) Nutritional Asmnt/Malnutrition Patient General Information Nutritional Screening High Risk Diagnosis failure to thrive, anemia Pertinent Medical Hx/Surgical Hx HTN, dyslipidemia Subjective Information Pt was seen eating lunch at time of visit. Pt doesn't like hospital food but said "don't stop sending it" because he will eat and reports good appetite. Lunch was seen almost finished. Current Diet Order/ Nutrition Support regular Pertinent Medications reviewed Pertinent Labs 12/06 cr 1.4, glucose 124 12/05 glucose 134, ab 4.1 Nutritional Hx/Data Height 1.78 m Height (Calculated Centimeters) 177.8 Current Weight (lbs) 108.862 kg Weight (Calculated Kilograms) 108.9 Weight (Calculated Grams) 150013.2 [place] Body Weight 166 Body Mass Index (BMI) 34.4 Weight Status Obese GI Symptoms GI Symptoms None Last BM not indicated Difficult in: None Food Allergies No Skin Integrity/Comment: intact Current %PO Good (75-100%) Estimated Nutritional Goals BEE in Kcals: Adj wt of IBW Calories/Kcals/Kg 25-30 Kcals Calculated Protein: Adj wt of IBW Protein g/k.8-1 Protein Calculated 67-83 Fluid: ml (1ml/kcal) Nutritional Problem No current Nutrition Prob Problem No nutrition diagnosis at this time Malnutrition Alert Is there a minimum of two criteria No selected? Query Text:Check all the applicable criteria. A minimum of two criteria are recommended for diagnosis of either severe or non-severe malnutrition. Malnutrition Related to Morbid Obesity Malnutrition related to morbid obesity No Intervention/Recommendation Comments 1. Continue with regular diet as ordered. 2. Monitor PO intake, wt, labs and skin integrity 3. F/U as moderate risk in 3-5 days Expected Outcomes/Goals Expected Outcomes/Goals 1. PO intake to meet at least 75% of nutritional needs. 2. Wt stability, skin to remain intact, labs to approach WNL. Reviewed by Tamela Fernandez RD
[2018-12-09 06:06] LABS: % BASOPHILS 0.4 % (0.0-2.0); % EOSINOPHILS 3.5 % (0.0-5.0); % LYMPHOCYTES 34.6 % (20.0-50.0); % MONOCYTES 6.3 % (2.0-10.0); % NEUTROPHILS 55.2 % (40.0-80.0); EOSINOPHILE ABSOLUTE 0.2 Th/cmm (0.1-0.4); HEMATOCRIT 32.4 % (41.0-60); HEMOGLOBIN 10.6 gm/dL (12-16); LYMPHOCYTE ABSOLUTE 1.8 Th/cmm (1.5-3.0); MEAN CELL VOLUME 85.4 fl (80-99); MEAN CORPUSCULAR HGB CONC 32.7 pg (28.0-36.0); MEAN PLATELET VOLUME 6.7 fl; MONOCYTE ABSOLUTE 0.3 Th/cmm (0.3-1.0); NEUTROPHILE ABSOLUTE 2.9 Th/cmm (1.8-8.0); PLATELET COUNT 328 Th/cmm (150-400); RED BLOOD COUNT 3.79 Mil/cmm (4.30-5.70); RED CELL DISTRIBUTION WIDTH 14.5 % (11.5-20.0); WHITE BLOOD COUNT 5.2 Th/cmm (4.8-10.8)
[2018-12-09 06:29] LABS: ALBUMIN 3.5 gm/dL (4.2-5.5); ALKALINE PHOSPHATASE 54 U/L (34-104); ANION GAP 11.3 (7.0-16.0); BILIRUBIN,TOTAL 0.4 mg/dL (0.3-1.0); BUN - UREA NITROGEN 26 mg/dL (7-25); CARBON DIOXIDE 25.2 mEq/L (21.0-31.0); CHLORIDE 106 mEq/L (98-107); CREATININE - SERUM 1.5 mg/dL (0.7-1.3); GFR AFRICAN-AMERICAN > 60.0 ml/min (>90); GFR NON AFRICAN-AMERICAN 51.1 ml/min; GLUCOSE 129 mg/dL (70-105); MAGNESIUM 1.8 mg/dL (1.9-2.7); PHOSPHOROUS 3.3 mg/dL (2.5-5.0); POTASSIUM SERUM 4.5 mEq/L (3.5-5.1); SGOT 9 U/L (13-39); SGPT/ALT 14 U/L (7-52); SODIUM SERUM 138 mEq/L (136-145); URIC ACID 7.9 mg/dL (4.4-7.6)
--- NOTE | 2018-12-09 13:30 | General Progress Note ---
Subjective - Review of Systems Service Date: 12/09/18 Subjective: Is no complaint of chest pain or shortness of breath Objective - Results Result Diagrams: 12/09/18 05:30 12/09/18 05:30 Recent Labs: Laboratory Last Values WBC 5.2 Th/cmm (4.8-10.8) 12/09/18 05:30 RBC 3.79 Mil/cmm (4.30-5.70) L 12/09/18 05:30 Hgb 10.6 gm/dL (12-16) L 12/09/18 05:30 Hct 32.4 % (41.0-60) L 12/09/18 05:30 MCV 85.4 fl (80-99) 12/09/18 05:30 MCH 28.0 pg (26.0-30.0) 12/09/18 05:30 MCHC Differential 32.7 pg (28.0-36.0) 12/09/18 05:30 RDW 14.5 % (11.5-20.0) 12/09/18 05:30 Plt Count 328 Th/cmm (150-400) 12/09/18 05:30 MPV 6.7 fl 12/09/18 05:30 Neutrophils % 55.2 % (40.0-80.0) 12/09/18 05:30 Lymphocytes % 34.6 % (20.0-50.0) 12/09/18 05:30 Monocytes % 6.3 % (2.0-10.0) 12/09/18 05:30 Eosinophils % 3.5 % (0.0-5.0) 12/09/18 05:30 Basophils % 0.4 % (0.0-2.0) 12/09/18 05:30 PT 9.9 SECONDS (9.5-11.5) 12/05/18 19:40 INR 0.95 (0.5-1.4) 12/05/18 19:40 PTT (Actin FS) 29.1 SECONDS (26.0-38.0) 12/05/18 19:40 Sodium 138 mEq/L (136-145) 12/09/18 05:30 Potassium 4.5 mEq/L (3.5-5.1) 12/09/18 05:30 Chloride 106 mEq/L (98-107) 12/09/18 05:30 Carbon Dioxide 25.2 mEq/L (21.0-31.0) 12/09/18 05:30 Anion Gap 11.3 (7.0-16.0) 12/09/18 05:30 BUN 26 mg/dL (7-25) H 12/09/18 05:30 Creatinine 1.5 mg/dL (0.7-1.3) H 12/09/18 05:30 Est GFR ( Amer) > 60.0 ml/min (>90) 12/09/18 05:30 Est GFR (Non-Af Amer) 51.1 ml/min 12/09/18 05:30 BUN/Creatinine Ratio 17.3 12/09/18 05:30 Glucose 129 mg/dL (70-105) H 12/09/18 05:30 Whole Bld Lactic Acid 0.85 mmol/L (0.60-1.99) 12/05/18 19:40 Uric Acid 7.9 mg/dL (4.4-7.6) H 12/09/18 05:30 Calcium 9.0 mg/dL (8.6-10.3) 12/09/18 05:30 Phosphorus 3.3 mg/dL (2.5-5.0) 12/09/18 05:30 Magnesium 1.8 mg/dL (1.9-2.7) L 12/09/18 05:30 Total Bilirubin 0.4 mg/dL (0.3-1.0) 12/09/18 05:30 AST 9 U/L (13-39) L 12/09/18 05:30 ALT 14 U/L (7-52) 12/09/18 05:30 Alkaline Phosphatase 54 U/L (34-104) 12/09/18 05:30 Creatine Kinase 137 U/L (30-223) 12/05/18 19:40 Troponin I < 0.01 ng/mL (0.01-0.05) L 12/05/18 19:40 Total Protein 7.0 gm/dL (6.0-8.3) 12/09/18 05:30 Albumin 3.5 gm/dL (4.2-5.5) L 12/09/18 05:30 Globulin 3.5 gm/dL 12/09/18 05:30 Albumin/Globulin Ratio 1.0 (1.0-1.8) 12/09/18 05:30 Amylase 164 U/L (29-103) H 12/05/18 19:40 Lipase 133 U/L (11-82) H 12/05/18 19:40 TSH 0.90 uIU/ml (0.34-5.60) 12/05/18 19:21 Urine Source MIDSTREAM 12/05/18 20:15 Urine Color STRAW 12/05/18 20:15 Urine Clarity CLEAR (CLEAR) 12/05/18 20:15 Urine pH 5.5 (4.6 - 8.0) 12/05/18 20:15 Ur Specific [place] 1.025 (1.005-1.030) 12/05/18 20:15 Urine Protein 30 mg/dL (NEGATIVE) H 12/05/18 20:15 Urine Glucose (UA) NEGATIVE mg/dL (NEGATIVE) 12/05/18 20:15 Urine Ketones NEGATIVE mg/dL (NEGATIVE) 12/05/18 20:15 Urine Blood MODERATE (NEGATIVE) H 12/05/18 20:15 Urine Nitrate NEGATIVE (NEGATIVE) 12/05/18 20:15 Urine Bilirubin NEGATIVE (NEGATIVE) 12/05/18 20:15 Urine Urobilinogen 0.2 E.U./dL (0.2 - 1.0) 12/05/18 20:15 Ur Leukocyte Esterase NEGATIVE (NEGATIVE) 12/05/18 20:15 Urine RBC NONE SEEN /hpf (0-5) 12/05/18 20:15 Urine WBC NONE SEEN /hpf (0-5) 12/05/18 20:15 Ur Epithelial Cells RARE /lpf (FEW) 12/05/18 20:15 Urine Bacteria NONE SEEN /hpf (NONE SEEN) 12/05/18 20:15 RPR NONREACTIVE (NONREACTIVE) 12/05/18 19:40 Influenza A (Rapid) NEG FOR INF A 12/08/18 21:51 Influenza B (Rapid) NEG FOR INF B 12/08/18 21:51 - Physical Exam Vitals and I&O: Vital Signs Temp 98.2 F 12/09/18 08:00 Pulse 68 12/09/18 08:35 Resp 18 12/09/18 08:00 BP 153/88 12/09/18 08:35 Pulse Ox 95 12/09/18 08:00 Intake & Output 12/08/18 12/09/18 12/09/18 18:59 06:59 18:59 Intake Total 720 200 Balance 720 200 Weight (lbs) 108.862 kg 108.862 kg Intake: Intake, IV Amount 100 Levofloxacin 500mg/100mL 100 500 mg In 100 ml @ 100 mls/hr IV Q24HR [facility] Rx#: [id number] Oral 720 100 Other: # Voids 3 1 # Bowel Movements 0 0 Weight Source Bedscale Bedscale Active Medications: Current Medications Hydralazine HCl (Apresoline) 25 mg PO BID [facility] Stop: 02/06/19 19:29 Last Admin: 12/09/18 08:35 Dose: 25 mg Levofloxacin (Levaquin Pb) 500 mg in 100 mls @ 100 mls/hr IV Q24HR [facility] Stop: 02/05/19 15:59 Last Infusion: 12/08/18 20:10 Dose: Infused Losartan Potassium (Cozaar) 100 mg PO DAILY [facility] Stop: 02/06/19 08:59 Last Admin: 12/09/18 08:35 Dose: 100 mg General: Alert HEENT: Mucous membr. moist/pink, Other (normal) Neck: Supple, JVD (flat), +2 carotid pulse wo bruit Cardiovascular: Regular rate, Normal S1, Normal S2 Lungs: Clear to auscultation, Normal air movement Abdomen: Bowel sounds, Soft Extremities: Pulses (normal) Neurological: Normal gait, Strength at 5/5 X4 ext, Cranial nerves 3-12 NL, Reflexes 2+ Skin: Other (normal) Assessment/Plan - Assessment Assessment: Hypertension And deficiency anemia Diabetes mellitus type 2 Diabetic C kidney stage II - Plan Plan: Continue present management control the blood pressure ambulate the patient Nutritional Asmnt/Malnutr-PDOC - Dietary Evaluation Malnutrition Findings (Please click <Entered> for more info): Nutritional Asmnt/Malnutrition Start: 12/06/18 14: 00 Text: Status: Complete Freq: Protocol: Document 12/06/18 14:00 [email or web address] (Rec: 12/06/18 14:08 [email or web address]) Nutritional Asmnt/Malnutrition Patient General Information Nutritional Screening High Risk Diagnosis failure to thrive, anemia Pertinent Medical Hx/Surgical Hx HTN, dyslipidemia Subjective Information Pt was seen eating lunch at time of visit. Pt doesn't like hospital food but said "don't stop sending it" because he will eat and reports good appetite. Lunch was seen almost finished. Current Diet Order/ Nutrition Support regular Pertinent Medications reviewed Pertinent Labs 12/06 cr 1.4, glucose 124 12/05 glucose 134, ab 4.1 Nutritional Hx/Data Height 1.78 m Height (Calculated Centimeters) 177.8 Current Weight (lbs) 108.862 kg Weight (Calculated Kilograms) 108.9 Weight (Calculated Grams) 982433.2 [place] Body Weight 166 Body Mass Index (BMI) 34.4 Weight Status Obese GI Symptoms GI Symptoms None Last BM not indicated Difficult in: None Food Allergies No Skin Integrity/Comment: intact Current %PO Good (75-100%) Estimated Nutritional Goals BEE in Kcals: Adj wt of IBW Calories/Kcals/Kg 25-30 Kcals Calculated 8126-5852 Protein: Adj wt of IBW Protein g/k.8-1 Protein Calculated 67-83 Fluid: ml 0684-4932 (1ml/kcal) Nutritional Problem No current Nutrition Prob Problem No nutrition diagnosis at this time Malnutrition Alert Is there a minimum of two criteria No selected? Query Text:Check all the applicable criteria. A minimum of two criteria are recommended for diagnosis of either severe or non-severe malnutrition. Malnutrition Related to Morbid Obesity Malnutrition related to morbid obesity No Intervention/Recommendation Comments 1. Continue with regular diet as ordered. 2. Monitor PO intake, wt, labs and skin integrity 3. F/U as moderate risk in 3-5 days Expected Outcomes/Goals Expected Outcomes/Goals 1. PO intake to meet at least 75% of nutritional needs. 2. Wt stability, skin to remain intact, labs to approach WNL. Reviewed by Tamela Fernandez RD
--- NOTE | 2018-12-09 14:32 | General Progress Note ---
Subjective - Review of Systems Service Date: 12/09/18 Subjective: oral intake has improved Objective - Results Result Diagrams: 12/09/18 05:30 12/09/18 05:30 Recent Labs: Laboratory Last Values WBC 5.2 Th/cmm (4.8-10.8) 12/09/18 05:30 RBC 3.79 Mil/cmm (4.30-5.70) L 12/09/18 05:30 Hgb 10.6 gm/dL (12-16) L 12/09/18 05:30 Hct 32.4 % (41.0-60) L 12/09/18 05:30 MCV 85.4 fl (80-99) 12/09/18 05:30 MCH 28.0 pg (26.0-30.0) 12/09/18 05:30 MCHC Differential 32.7 pg (28.0-36.0) 12/09/18 05:30 RDW 14.5 % (11.5-20.0) 12/09/18 05:30 Plt Count 328 Th/cmm (150-400) 12/09/18 05:30 MPV 6.7 fl 12/09/18 05:30 Neutrophils % 55.2 % (40.0-80.0) 12/09/18 05:30 Lymphocytes % 34.6 % (20.0-50.0) 12/09/18 05:30 Monocytes % 6.3 % (2.0-10.0) 12/09/18 05:30 Eosinophils % 3.5 % (0.0-5.0) 12/09/18 05:30 Basophils % 0.4 % (0.0-2.0) 12/09/18 05:30 PT 9.9 SECONDS (9.5-11.5) 12/05/18 19:40 INR 0.95 (0.5-1.4) 12/05/18 19:40 PTT (Actin FS) 29.1 SECONDS (26.0-38.0) 12/05/18 19:40 Sodium 138 mEq/L (136-145) 12/09/18 05:30 Potassium 4.5 mEq/L (3.5-5.1) 12/09/18 05:30 Chloride 106 mEq/L (98-107) 12/09/18 05:30 Carbon Dioxide 25.2 mEq/L (21.0-31.0) 12/09/18 05:30 Anion Gap 11.3 (7.0-16.0) 12/09/18 05:30 BUN 26 mg/dL (7-25) H 12/09/18 05:30 Creatinine 1.5 mg/dL (0.7-1.3) H 12/09/18 05:30 Est GFR ( Amer) > 60.0 ml/min (>90) 12/09/18 05:30 Est GFR (Non-Af Amer) 51.1 ml/min 12/09/18 05:30 BUN/Creatinine Ratio 17.3 12/09/18 05:30 Glucose 129 mg/dL (70-105) H 12/09/18 05:30 Whole Bld Lactic Acid 0.85 mmol/L (0.60-1.99) 12/05/18 19:40 Uric Acid 7.9 mg/dL (4.4-7.6) H 12/09/18 05:30 Calcium 9.0 mg/dL (8.6-10.3) 12/09/18 05:30 Phosphorus 3.3 mg/dL (2.5-5.0) 12/09/18 05:30 Magnesium 1.8 mg/dL (1.9-2.7) L 12/09/18 05:30 Total Bilirubin 0.4 mg/dL (0.3-1.0) 12/09/18 05:30 AST 9 U/L (13-39) L 12/09/18 05:30 ALT 14 U/L (7-52) 12/09/18 05:30 Alkaline Phosphatase 54 U/L (34-104) 12/09/18 05:30 Creatine Kinase 137 U/L (30-223) 12/05/18 19:40 Troponin I < 0.01 ng/mL (0.01-0.05) L 12/05/18 19:40 Total Protein 7.0 gm/dL (6.0-8.3) 12/09/18 05:30 Albumin 3.5 gm/dL (4.2-5.5) L 12/09/18 05:30 Globulin 3.5 gm/dL 12/09/18 05:30 Albumin/Globulin Ratio 1.0 (1.0-1.8) 12/09/18 05:30 Amylase 164 U/L (29-103) H 12/05/18 19:40 Lipase 133 U/L (11-82) H 12/05/18 19:40 TSH 0.90 uIU/ml (0.34-5.60) 12/05/18 19:21 Urine Source MIDSTREAM 12/05/18 20:15 Urine Color STRAW 12/05/18 20:15 Urine Clarity CLEAR (CLEAR) 12/05/18 20:15 Urine pH 5.5 (4.6 - 8.0) 12/05/18 20:15 Ur Specific [place] 1.025 (1.005-1.030) 12/05/18 20:15 Urine Protein 30 mg/dL (NEGATIVE) H 12/05/18 20:15 Urine Glucose (UA) NEGATIVE mg/dL (NEGATIVE) 12/05/18 20:15 Urine Ketones NEGATIVE mg/dL (NEGATIVE) 12/05/18 20:15 Urine Blood MODERATE (NEGATIVE) H 12/05/18 20:15 Urine Nitrate NEGATIVE (NEGATIVE) 12/05/18 20:15 Urine Bilirubin NEGATIVE (NEGATIVE) 12/05/18 20:15 Urine Urobilinogen 0.2 E.U./dL (0.2 - 1.0) 12/05/18 20:15 Ur Leukocyte Esterase NEGATIVE (NEGATIVE) 12/05/18 20:15 Urine RBC NONE SEEN /hpf (0-5) 12/05/18 20:15 Urine WBC NONE SEEN /hpf (0-5) 12/05/18 20:15 Ur Epithelial Cells RARE /lpf (FEW) 12/05/18 20:15 Urine Bacteria NONE SEEN /hpf (NONE SEEN) 12/05/18 20:15 RPR NONREACTIVE (NONREACTIVE) 12/05/18 19:40 Influenza A (Rapid) NEG FOR INF A 12/08/18 21:51 Influenza B (Rapid) NEG FOR INF B 12/08/18 21:51 - Physical Exam Vitals and I&O: Vital Signs Temp 98.2 F 12/09/18 08:00 Pulse 68 12/09/18 08:35 Resp 18 12/09/18 08:00 BP 153/88 12/09/18 08:35 Pulse Ox 95 12/09/18 08:00 Intake & Output 12/08/18 12/09/18 12/09/18 18:59 06:59 18:59 Intake Total 720 200 Balance 720 200 Weight (lbs) 108.862 kg 108.862 kg Intake: Intake, IV Amount 100 Levofloxacin 500mg/100mL 100 500 mg In 100 ml @ 100 mls/hr IV Q24HR [facility] Rx#: [id number] Oral 720 100 Other: # Voids 3 1 # Bowel Movements 0 0 Weight Source Bedscale Bedscale Active Medications: Current Medications Hydralazine HCl (Apresoline) 25 mg PO BID [facility] Stop: 02/06/19 19:29 Last Admin: 12/09/18 08:35 Dose: 25 mg Levofloxacin (Levaquin Pb) 500 mg in 100 mls @ 100 mls/hr IV Q24HR [facility] Stop: 02/05/19 15:59 Last Infusion: 12/08/18 20:10 Dose: Infused Losartan Potassium (Cozaar) 100 mg PO DAILY [facility] Stop: 02/06/19 08:59 Last Admin: 12/09/18 08:35 Dose: 100 mg General: Alert, No acute distress HEENT: Atraumatic, Mucous membr. moist/pink Neck: Supple, JVD (flat), +2 carotid pulse wo bruit Cardiovascular: Regular rate, Normal S1, Normal S2 Lungs: Clear to auscultation, Normal air movement Abdomen: Bowel sounds, Soft Extremities: Pulses (normal), no Edema Neurological: Normal gait, Strength at 5/5 X4 ext, Cranial nerves 3-12 NL, Reflexes 2+ Skin: Other (normal) Psych/Mental Status: Mood NL Assessment/Plan - Assessment Assessment: DELIA Elevated post void residual Ess Htn Obesity Dyslipidemia FTT - Plan Plan: Lab - Result Diagrams 12/09/18 05:30 12/09/18 05:30 Hydralazine HLab - Result Diagrams 12/09/18 05:30 12/09/18 05:30 Cl (Apresoline) 25 mg PO BID [facility] Stop: 02/06/19 19:29 Last Admin: 12/09/18 08:35 Dose: 25 mg Levofloxacin (Levaquin Pb) 500 mg in 100 mls @ 100 mls/hr IV Q24HR [facility] Stop: 02/05/19 15:59 Last Infusion: 12/08/18 20:10 Dose: Infused Losartan Potassium (Cozaar) 100 mg PO DAILY [facility] Stop: 02/06/19 08:59 Last Admin: 12/09/18 08:35 Dose: 100 mg slight decrease kidney fnc start gentle hydration f/u repeat bladder US Nutritional Asmnt/Malnutr-PDOC - Dietary Evaluation Malnutrition Findings (Please click <Entered> for more info): Nutritional Asmnt/Malnutrition Start: 12/06/18 14: 00 Text: Status: Complete Freq: Protocol: Document 12/06/18 14:00 [email or web address] (Rec: 12/06/18 14:08 [email or web address]) Nutritional Asmnt/Malnutrition Patient General Information Nutritional Screening High Risk Diagnosis failure to thrive, anemia Pertinent Medical Hx/Surgical Hx HTN, dyslipidemia Subjective Information Pt was seen eating lunch at time of visit. Pt doesn't like hospital food but said "don't stop sending it" because he will eat and reports good appetite. Lunch was seen almost finished. Current Diet Order/ Nutrition Support regular Pertinent Medications reviewed Pertinent Labs 12/06 cr 1.4, glucose 124 12/05 glucose 134, ab 4.1 Nutritional Hx/Data Height 1.78 m Height (Calculated Centimeters) 177.8 Current Weight (lbs) 108.862 kg Weight (Calculated Kilograms) 108.9 Weight (Calculated Grams) 890790.2 [place] Body Weight 166 Body Mass Index (BMI) 34.4 Weight Status Obese GI Symptoms GI Symptoms None Last BM not indicated Difficult in: None Food Allergies No Skin Integrity/Comment: intact Current %PO Good (75-100%) Estimated Nutritional Goals BEE in Kcals: Adj wt of IBW Calories/Kcals/Kg 25-30 Kcals Calculated 6771-6070 Protein: Adj wt of IBW Protein g/k.8-1 Protein Calculated 67-83 Fluid: ml 4068-8603 (1ml/kcal) Nutritional Problem No current Nutrition Prob Problem No nutrition diagnosis at this time Malnutrition Alert Is there a minimum of two criteria No selected? Query Text:Check all the applicable criteria. A minimum of two criteria are recommended for diagnosis of either severe or non-severe malnutrition. Malnutrition Related to Morbid Obesity Malnutrition related to morbid obesity No Intervention/Recommendation Comments 1. Continue with regular diet as ordered. 2. Monitor PO intake, wt, labs and skin integrity 3. F/U as moderate risk in 3-5 days Expected Outcomes/Goals Expected Outcomes/Goals 1. PO intake to meet at least 75% of nutritional needs. 2. Wt stability, skin to remain intact, labs to approach WNL. Reviewed by Tamela Fernandez RD
[2018-12-09] MEDS: Levofloxacin 500mg/100mL 500 MG/100 ML BAG IV SCH (15:41)
[2018-12-09] MEDS: Sodium Chloride 0.45% 1,000 ML IV SCH (15:42)
--- NOTE | 2018-12-10 00:53 | Infectious Disease Prog Note ---
Infectious Disease Subjective - Review of Systems Service Date: 12/09/18 Subjective: There is no new change, no fever. BP better Controlled. Infectious Disease Objective - Results Result Diagrams: 12/09/18 05:30 12/09/18 05:30 Recent Labs: Laboratory Last Values WBC 5.2 Th/cmm (4.8-10.8) 12/09/18 05:30 RBC 3.79 Mil/cmm (4.30-5.70) L 12/09/18 05:30 Hgb 10.6 gm/dL (12-16) L 12/09/18 05:30 Hct 32.4 % (41.0-60) L 12/09/18 05:30 MCV 85.4 fl (80-99) 12/09/18 05:30 MCH 28.0 pg (26.0-30.0) 12/09/18 05:30 MCHC Differential 32.7 pg (28.0-36.0) 12/09/18 05:30 RDW 14.5 % (11.5-20.0) 12/09/18 05:30 Plt Count 328 Th/cmm (150-400) 12/09/18 05:30 MPV 6.7 fl 12/09/18 05:30 Neutrophils % 55.2 % (40.0-80.0) 12/09/18 05:30 Lymphocytes % 34.6 % (20.0-50.0) 12/09/18 05:30 Monocytes % 6.3 % (2.0-10.0) 12/09/18 05:30 Eosinophils % 3.5 % (0.0-5.0) 12/09/18 05:30 Basophils % 0.4 % (0.0-2.0) 12/09/18 05:30 PT 9.9 SECONDS (9.5-11.5) 12/05/18 19:40 INR 0.95 (0.5-1.4) 12/05/18 19:40 PTT (Actin FS) 29.1 SECONDS (26.0-38.0) 12/05/18 19:40 Sodium 138 mEq/L (136-145) 12/09/18 05:30 Potassium 4.5 mEq/L (3.5-5.1) 12/09/18 05:30 Chloride 106 mEq/L (98-107) 12/09/18 05:30 Carbon Dioxide 25.2 mEq/L (21.0-31.0) 12/09/18 05:30 Anion Gap 11.3 (7.0-16.0) 12/09/18 05:30 BUN 26 mg/dL (7-25) H 12/09/18 05:30 Creatinine 1.5 mg/dL (0.7-1.3) H 12/09/18 05:30 Est GFR ( Amer) > 60.0 ml/min (>90) 12/09/18 05:30 Est GFR (Non-Af Amer) 51.1 ml/min 12/09/18 05:30 BUN/Creatinine Ratio 17.3 12/09/18 05:30 Glucose 129 mg/dL (70-105) H 12/09/18 05:30 Whole Bld Lactic Acid 0.85 mmol/L (0.60-1.99) 12/05/18 19:40 Uric Acid 7.9 mg/dL (4.4-7.6) H 12/09/18 05:30 Calcium 9.0 mg/dL (8.6-10.3) 12/09/18 05:30 Phosphorus 3.3 mg/dL (2.5-5.0) 12/09/18 05:30 Magnesium 1.8 mg/dL (1.9-2.7) L 12/09/18 05:30 Total Bilirubin 0.4 mg/dL (0.3-1.0) 12/09/18 05:30 AST 9 U/L (13-39) L 12/09/18 05:30 ALT 14 U/L (7-52) 12/09/18 05:30 Alkaline Phosphatase 54 U/L (34-104) 12/09/18 05:30 Creatine Kinase 137 U/L (30-223) 12/05/18 19:40 Troponin I < 0.01 ng/mL (0.01-0.05) L 12/05/18 19:40 Total Protein 7.0 gm/dL (6.0-8.3) 12/09/18 05:30 Albumin 3.5 gm/dL (4.2-5.5) L 12/09/18 05:30 Globulin 3.5 gm/dL 12/09/18 05:30 Albumin/Globulin Ratio 1.0 (1.0-1.8) 12/09/18 05:30 Amylase 164 U/L (29-103) H 12/05/18 19:40 Lipase 133 U/L (11-82) H 12/05/18 19:40 TSH 0.90 uIU/ml (0.34-5.60) 12/05/18 19:21 Urine Source MIDSTREAM 12/05/18 20:15 Urine Color STRAW 12/05/18 20:15 Urine Clarity CLEAR (CLEAR) 12/05/18 20:15 Urine pH 5.5 (4.6 - 8.0) 12/05/18 20:15 Ur Specific [place] 1.025 (1.005-1.030) 12/05/18 20:15 Urine Protein 30 mg/dL (NEGATIVE) H 12/05/18 20:15 Urine Glucose (UA) NEGATIVE mg/dL (NEGATIVE) 12/05/18 20:15 Urine Ketones NEGATIVE mg/dL (NEGATIVE) 12/05/18 20:15 Urine Blood MODERATE (NEGATIVE) H 12/05/18 20:15 Urine Nitrate NEGATIVE (NEGATIVE) 12/05/18 20:15 Urine Bilirubin NEGATIVE (NEGATIVE) 12/05/18 20:15 Urine Urobilinogen 0.2 E.U./dL (0.2 - 1.0) 12/05/18 20:15 Ur Leukocyte Esterase NEGATIVE (NEGATIVE) 12/05/18 20:15 Urine RBC NONE SEEN /hpf (0-5) 12/05/18 20:15 Urine WBC NONE SEEN /hpf (0-5) 12/05/18 20:15 Ur Epithelial Cells RARE /lpf (FEW) 12/05/18 20:15 Urine Bacteria NONE SEEN /hpf (NONE SEEN) 12/05/18 20:15 Ur Random Sodium 116 mmol/L 12/09/18 21:22 Urine Creatinine 125.0 mg/dl (39.0-259.0) 12/09/18 21:22 RPR NONREACTIVE (NONREACTIVE) 12/05/18 19:40 Influenza A (Rapid) NEG FOR INF A 12/08/18 21:51 Influenza B (Rapid) NEG FOR INF B 12/08/18 21:51 - Physical Exam Vitals and I&O: Vital Signs Temp 97.4 F 12/10/18 00:00 Pulse 70 12/10/18 00:00 Resp 18 12/10/18 00:00 BP 159/83 12/10/18 00:00 Pulse Ox 100 12/10/18 00:00 Intake & Output 12/09/18 12/09/18 12/10/18 06:59 18:59 06:59 Intake Total 200 720 100 Balance 200 720 100 Weight (lbs) 108.862 kg 115.303 kg Intake: Intake, IV Amount 100 100 Levofloxacin 500mg/100mL 100 100 500 mg In 100 ml @ 100 mls/hr IV Q24HR [facility] Rx#: [id number] Oral 100 720 Other: # Voids 1 2 # Bowel Movements 0 0 Weight Source Bedscale Bedscale Active Medications: Current Medications Docusate Sodium (Colace) 250 mg PO DAILY ANGELA Stop: 02/07/19 14:59 Last Admin: 12/09/18 15:42 Dose: 250 mg Hydralazine HCl (Apresoline) 25 mg PO BID ANGELA Stop: 02/06/19 19:29 Last Admin: 12/09/18 16:07 Dose: 25 mg Levofloxacin (Levaquin Pb) 500 mg in 100 mls @ 100 mls/hr IV Q24HR ANGELA Stop: 02/05/19 15:59 Last Infusion: 12/09/18 20:54 Dose: Infused Sodium Chloride (Nacl 0.45%) 1,000 mls @ 75 mls/hr IV .[id number] ANGELA Stop: 02/07/19 14:44 Last Admin: 12/09/18 15:42 Dose: 75 mls/hr Losartan Potassium (Cozaar) 100 mg PO DAILY ANGELA Stop: 02/06/19 08:59 Last Admin: 12/09/18 08:35 Dose: 100 mg General: no acute distress, well developed, well nourished HEENT: atraumatic, normocephalic, PERRLA, EOMI Neck: supple, no thyromegaly Cardiovascular: S1S2, regular Lungs: clear to auscultation bilaterally, clear to percussion Abdomen: soft, no tender, no distended Extremities: no cyanosis, no clubbing, no edema Infectious Disease Assmt/Plan - Assessment Assessment: 1. Emergent hypertension. There is a mild azotemia. 2. Azotemia. increasing creatinine. IVF started. 3. Suspect pneumonia. 4. Dyslipidemia. - Plan Plan: Continue the same treatment. IVF. IF creatinine improves, will dc plan to snf. Check labs in AM. Nutritional Asmnt/Malnutr-PDOC - Dietary Evaluation Malnutrition Findings (Please click <Entered> for more info): Nutritional Asmnt/Malnutrition Start: 12/06/18 14: 00 Text: Status: Complete Freq: Protocol: Document 12/06/18 14:00 [email or web address] (Rec: 12/06/18 14:08 [email or web address]) Nutritional Asmnt/Malnutrition Patient General Information Nutritional Screening High Risk Diagnosis failure to thrive, anemia Pertinent Medical Hx/Surgical Hx HTN, dyslipidemia Subjective Information Pt was seen eating lunch at time of visit. Pt doesn't like hospital food but said "don't stop sending it" because he will eat and reports good appetite. Lunch was seen almost finished. Current Diet Order/ Nutrition Support regular Pertinent Medications reviewed Pertinent Labs 12/06 cr 1.4, glucose 124 12/05 glucose 134, ab 4.1 Nutritional Hx/Data Height 1.78 m Height (Calculated Centimeters) 177.8 Current Weight (lbs) 108.862 kg Weight (Calculated Kilograms) 108.9 Weight (Calculated Grams) 556721.2 [place] Body Weight 166 Body Mass Index (BMI) 34.4 Weight Status Obese GI Symptoms GI Symptoms None Last BM not indicated Difficult in: None Food Allergies No Skin Integrity/Comment: intact Current %PO Good (75-100%) Estimated Nutritional Goals BEE in Kcals: Adj wt of IBW Calories/Kcals/Kg 25-30 Kcals Calculated Protein: Adj wt of IBW Protein g/k.8-1 Protein Calculated 67-83 Fluid: ml 9032-1725 (1ml/kcal) Nutritional Problem No current Nutrition Prob Problem No nutrition diagnosis at this time Malnutrition Alert Is there a minimum of two criteria No selected? Query Text:Check all the applicable criteria. A minimum of two criteria are recommended for diagnosis of either severe or non-severe malnutrition. Malnutrition Related to Morbid Obesity Malnutrition related to morbid obesity No Intervention/Recommendation Comments 1. Continue with regular diet as ordered. 2. Monitor PO intake, wt, labs and skin integrity 3. F/U as moderate risk in 3-5 days Expected Outcomes/Goals Expected Outcomes/Goals 1. PO intake to meet at least 75% of nutritional needs. 2. Wt stability, skin to remain intact, labs to approach WNL. Reviewed by Tamela Fernandez RD
[2018-12-10 05:12] LABS: EOSINOPHILE ABSOLUTE 0.2 Th/cmm (0.1-0.4); HEMATOCRIT 32.2 % (41.0-60); MONOCYTE ABSOLUTE 0.3 Th/cmm (0.3-1.0); RED BLOOD COUNT 3.73 Mil/cmm (4.30-5.70)
[2018-12-10 05:31] LABS: % BASOPHILS 1.3 % (0.0-2.0); % EOSINOPHILS 3.8 % (0.0-5.0); % LYMPHOCYTES 37.2 % (20.0-50.0); % MONOCYTES 5.7 % (2.0-10.0); BASOPHILE ABSOLUTE 0.1 Th/cumm (0-0.2); HEMOGLOBIN 10.5 gm/dL (12-16); LYMPHOCYTE ABSOLUTE 1.8 Th/cmm (1.5-3.0); MEAN CELL VOLUME 86.4 fl (80-99); MEAN CORPUSCULAR HEMOGLOBIN 28.3 pg (26.0-30.0); MEAN CORPUSCULAR HGB CONC 32.7 pg (28.0-36.0); MEAN PLATELET VOLUME 7.2 fl; NEUTROPHILE ABSOLUTE 2.5 Th/cmm (1.8-8.0); PLATELET COUNT 331 Th/cmm (150-400); RED CELL DISTRIBUTION WIDTH 14.9 % (11.5-20.0); WHITE BLOOD COUNT 4.9 Th/cmm (4.8-10.8)
[2018-12-10 05:45] LABS: ALB/GLOB RATIO 1.1 (1.0-1.8); ALBUMIN 3.7 gm/dL (4.2-5.5); ALKALINE PHOSPHATASE 55 U/L (34-104); ANION GAP 11.7 (7.0-16.0); BILIRUBIN,TOTAL 0.4 mg/dL (0.3-1.0); BUN - UREA NITROGEN 25 mg/dL (7-25); CALCIUM SERUM 9.2 mg/dL (8.6-10.3); CARBON DIOXIDE 26.4 mEq/L (21.0-31.0); CHLORIDE 104 mEq/L (98-107); CREATININE - SERUM 1.5 mg/dL (0.7-1.3); GFR AFRICAN-AMERICAN > 60.0 ml/min (>90); GFR NON AFRICAN-AMERICAN 51.1 ml/min; GLUCOSE 132 mg/dL (70-105); POTASSIUM SERUM 4.1 mEq/L (3.5-5.1); SGOT 9 U/L (13-39); SGPT/ALT 13 U/L (7-52); SODIUM SERUM 138 mEq/L (136-145); TOTAL PROTEIN,SERUM 7.1 gm/dL (6.0-8.3)
[2018-12-10 05:55] LABS: EOSINOPHIL SMEAR SOURCE URINE; EOSINOPHILS SMEAR COUNT NONE SEEN (NONE SEEN)
[2018-12-10] MEDS: Sodium Chloride 0.45% 1,000 ML IV SCH (06:40)
--- NOTE | 2018-12-10 07:52 | Diagnostic Imaging Report ---
Exam: Ultrasound examination of the ureter bladder. HISTORY: Evaluate post void residual. Findings: Real-time ultrasound examination of urinary bladder was performed multiple planes. The study demonstrates normal appearance of urinary bladder with the post void residual of 98.8 cc. IMPRESSION: Post for residual in urinary bladder of 98.8 cc.
--- NOTE | 2018-12-10 11:08 | General Progress Note ---
Subjective - Review of Systems Service Date: 12/10/18 Subjective: Is no complaint of chest pain or shortness of breath patient comfortable Objective - Results Result Diagrams: 12/10/18 04:35 12/10/18 04:35 Recent Labs: Laboratory Last Values WBC 4.9 Th/cmm (4.8-10.8) 12/10/18 04:35 RBC 3.73 Mil/cmm (4.30-5.70) L 12/10/18 04:35 Hgb 10.5 gm/dL (12-16) L 12/10/18 04:35 Hct 32.2 % (41.0-60) L 12/10/18 04:35 MCV 86.4 fl (80-99) 12/10/18 04:35 MCH 28.3 pg (26.0-30.0) 12/10/18 04:35 MCHC Differential 32.7 pg (28.0-36.0) 12/10/18 04:35 RDW 14.9 % (11.5-20.0) 12/10/18 04:35 Plt Count 331 Th/cmm (150-400) 12/10/18 04:35 MPV 7.2 fl 12/10/18 04:35 Neutrophils % 52.0 % (40.0-80.0) 12/10/18 04:35 Lymphocytes % 37.2 % (20.0-50.0) 12/10/18 04:35 Monocytes % 5.7 % (2.0-10.0) 12/10/18 04:35 Eosinophils % 3.8 % (0.0-5.0) 12/10/18 04:35 Basophils % 1.3 % (0.0-2.0) 12/10/18 04:35 Eos Smear Source URINE 12/09/18 21:22 Eos Smear Total Cells NONE SEEN (NONE SEEN) 12/09/18 21:22 PT 9.9 SECONDS (9.5-11.5) 12/05/18 19:40 INR 0.95 (0.5-1.4) 12/05/18 19:40 PTT (Actin FS) 29.1 SECONDS (26.0-38.0) 12/05/18 19:40 Sodium 138 mEq/L (136-145) 12/10/18 04:35 Potassium 4.1 mEq/L (3.5-5.1) 12/10/18 04:35 Chloride 104 mEq/L (98-107) 12/10/18 04:35 Carbon Dioxide 26.4 mEq/L (21.0-31.0) 12/10/18 04:35 Anion Gap 11.7 (7.0-16.0) 12/10/18 04:35 BUN 25 mg/dL (7-25) 12/10/18 04:35 Creatinine 1.5 mg/dL (0.7-1.3) H 12/10/18 04:35 Est GFR ( Amer) > 60.0 ml/min (>90) 12/10/18 04:35 Est GFR (Non-Af Amer) 51.1 ml/min 12/10/18 04:35 BUN/Creatinine Ratio 16.7 12/10/18 04:35 Glucose 132 mg/dL (70-105) H 12/10/18 04:35 Whole Bld Lactic Acid 0.85 mmol/L (0.60-1.99) 12/05/18 19:40 Uric Acid 7.9 mg/dL (4.4-7.6) H 12/09/18 05:30 Calcium 9.2 mg/dL (8.6-10.3) 12/10/18 04:35 Phosphorus 3.3 mg/dL (2.5-5.0) 12/09/18 05:30 Magnesium 1.8 mg/dL (1.9-2.7) L 12/09/18 05:30 Total Bilirubin 0.4 mg/dL (0.3-1.0) 12/10/18 04:35 AST 9 U/L (13-39) L 12/10/18 04:35 ALT 13 U/L (7-52) 12/10/18 04:35 Alkaline Phosphatase 55 U/L (34-104) 12/10/18 04:35 Creatine Kinase 137 U/L (30-223) 12/05/18 19:40 Troponin I < 0.01 ng/mL (0.01-0.05) L 12/05/18 19:40 Total Protein 7.1 gm/dL (6.0-8.3) 12/10/18 04:35 Albumin 3.7 gm/dL (4.2-5.5) L 12/10/18 04:35 Globulin 3.4 gm/dL 12/10/18 04:35 Albumin/Globulin Ratio 1.1 (1.0-1.8) 12/10/18 04:35 Amylase 164 U/L (29-103) H 12/05/18 19:40 Lipase 133 U/L (11-82) H 12/05/18 19:40 TSH 0.90 uIU/ml (0.34-5.60) 12/05/18 19:21 Urine Source MIDSTREAM 12/05/18 20:15 Urine Color STRAW 12/05/18 20:15 Urine Clarity CLEAR (CLEAR) 12/05/18 20:15 Urine pH 5.5 (4.6 - 8.0) 12/05/18 20:15 Ur Specific [place] 1.025 (1.005-1.030) 12/05/18 20:15 Urine Protein 30 mg/dL (NEGATIVE) H 12/05/18 20:15 Urine Glucose (UA) NEGATIVE mg/dL (NEGATIVE) 12/05/18 20:15 Urine Ketones NEGATIVE mg/dL (NEGATIVE) 12/05/18 20:15 Urine Blood MODERATE (NEGATIVE) H 12/05/18 20:15 Urine Nitrate NEGATIVE (NEGATIVE) 12/05/18 20:15 Urine Bilirubin NEGATIVE (NEGATIVE) 12/05/18 20:15 Urine Urobilinogen 0.2 E.U./dL (0.2 - 1.0) 12/05/18 20:15 Ur Leukocyte Esterase NEGATIVE (NEGATIVE) 12/05/18 20:15 Urine RBC NONE SEEN /hpf (0-5) 12/05/18 20:15 Urine WBC NONE SEEN /hpf (0-5) 12/05/18 20:15 Ur Epithelial Cells RARE /lpf (FEW) 12/05/18 20:15 Urine Bacteria NONE SEEN /hpf (NONE SEEN) 12/05/18 20:15 Ur Random Sodium 116 mmol/L 12/09/18 21:22 Urine Creatinine 125.0 mg/dl (39.0-259.0) 12/09/18 21:22 RPR NONREACTIVE (NONREACTIVE) 12/05/18 19:40 Influenza A (Rapid) NEG FOR INF A 12/08/18 21:51 Influenza B (Rapid) NEG FOR INF B 12/08/18 21:51 - Physical Exam Vitals and I&O: Vital Signs Temp 97.3 F 12/10/18 07:44 Pulse 70 12/10/18 08:44 Resp 18 12/10/18 07:44 BP 133/85 12/10/18 08:44 Pulse Ox 100 12/10/18 07:44 Intake & Output 12/09/18 12/10/18 12/10/18 18:59 06:59 18:59 Intake Total 720 340 Output Total 200 Balance 720 140 Weight (lbs) 115.303 kg 115.666 kg Intake: Intake, IV Amount 100 Levofloxacin 500mg/100mL 100 500 mg In 100 ml @ 100 mls/hr IV Q24HR [facility] Rx#: [id number] Oral 720 240 Output: Urine 200 Other: # Voids 2 3 # Bowel Movements 0 0 Weight Source Bedscale Bedscale Active Medications: Current Medications Docusate Sodium (Colace) 250 mg PO DAILY ANGELA Stop: 02/07/19 14:59 Last Admin: 12/10/18 08:44 Dose: 250 mg Hydralazine HCl (Apresoline) 25 mg PO BID ANGELA Stop: 02/06/19 19:29 Last Admin: 12/10/18 08:44 Dose: 25 mg Levofloxacin (Levaquin Pb) 500 mg in 100 mls @ 100 mls/hr IV Q24HR ANGELA Stop: 02/05/19 15:59 Last Infusion: 12/09/18 20:54 Dose: Infused Sodium Chloride (Nacl 0.45%) 1,000 mls @ 75 mls/hr IV .[id number] ANGELA Stop: 02/07/19 14:44 Last Admin: 12/10/18 06:40 Dose: Not Given Losartan Potassium (Cozaar) 100 mg PO DAILY ANGELA Stop: 02/06/19 08:59 Last Admin: 12/10/18 08:44 Dose: 100 mg General: Alert, No acute distress HEENT: Atraumatic, Mucous membr. moist/pink Neck: Supple, JVD (flat), +2 carotid pulse wo bruit Cardiovascular: Regular rate, Normal S1, Normal S2 Lungs: Clear to auscultation, Normal air movement Abdomen: Bowel sounds, Soft Extremities: Pulses (normal), no Edema Neurological: Normal gait, Strength at 5/5 X4 ext, Cranial nerves 3-12 NL, Reflexes 2+ Skin: Other (normal) Psych/Mental Status: Mood NL Assessment/Plan - Assessment Assessment: Hypertension And deficiency anemia Diabetes mellitus type 2 Diabetic C kidney stage II - Plan Plan: Continue present management control the blood pressure ambulate the patient Nutritional Asmnt/Malnutr-PDOC - Dietary Evaluation Malnutrition Findings (Please click <Entered> for more info): Nutritional Asmnt/Malnutrition Start: 12/06/18 14: 00 Text: Status: Complete Freq: Protocol: Document 12/06/18 14:00 [email or web address] (Rec: 12/06/18 14:08 [email or web address]) Nutritional Asmnt/Malnutrition Patient General Information Nutritional Screening High Risk Diagnosis failure to thrive, anemia Pertinent Medical Hx/Surgical Hx HTN, dyslipidemia Subjective Information Pt was seen eating lunch at time of visit. Pt doesn't like hospital food but said "don't stop sending it" because he will eat and reports good appetite. Lunch was seen almost finished. Current Diet Order/ Nutrition Support regular Pertinent Medications reviewed Pertinent Labs 12/06 cr 1.4, glucose 124 12/05 glucose 134, ab 4.1 Nutritional Hx/Data Height 1.78 m Height (Calculated Centimeters) 177.8 Current Weight (lbs) 108.862 kg Weight (Calculated Kilograms) 108.9 Weight (Calculated Grams) 765001.2 [place] Body Weight 166 Body Mass Index (BMI) 34.4 Weight Status Obese GI Symptoms GI Symptoms None Last BM not indicated Difficult in: None Food Allergies No Skin Integrity/Comment: intact Current %PO Good (75-100%) Estimated Nutritional Goals BEE in Kcals: Adj wt of IBW Calories/Kcals/Kg 25-30 Kcals Calculated 7778-0560 Protein: Adj wt of IBW Protein g/k.8-1 Protein Calculated 67-83 Fluid: ml 7815-6688 (1ml/kcal) Nutritional Problem No current Nutrition Prob Problem No nutrition diagnosis at this time Malnutrition Alert Is there a minimum of two criteria No selected? Query Text:Check all the applicable criteria. A minimum of two criteria are recommended for diagnosis of either severe or non-severe malnutrition. Malnutrition Related to Morbid Obesity Malnutrition related to morbid obesity No Intervention/Recommendation Comments 1. Continue with regular diet as ordered. 2. Monitor PO intake, wt, labs and skin integrity 3. F/U as moderate risk in 3-5 days Expected Outcomes/Goals Expected Outcomes/Goals 1. PO intake to meet at least 75% of nutritional needs. 2. Wt stability, skin to remain intact, labs to approach WNL. Reviewed by Tamela Fernandez RD
--- NOTE | 2018-12-10 14:48 | General Progress Note ---
Subjective - Review of Systems Service Date: 12/10/18 Subjective: oral intake has improved Objective - Results Result Diagrams: 12/10/18 04:35 12/10/18 04:35 Recent Labs: Laboratory Last Values WBC 4.9 Th/cmm (4.8-10.8) 12/10/18 04:35 RBC 3.73 Mil/cmm (4.30-5.70) L 12/10/18 04:35 Hgb 10.5 gm/dL (12-16) L 12/10/18 04:35 Hct 32.2 % (41.0-60) L 12/10/18 04:35 MCV 86.4 fl (80-99) 12/10/18 04:35 MCH 28.3 pg (26.0-30.0) 12/10/18 04:35 MCHC Differential 32.7 pg (28.0-36.0) 12/10/18 04:35 RDW 14.9 % (11.5-20.0) 12/10/18 04:35 Plt Count 331 Th/cmm (150-400) 12/10/18 04:35 MPV 7.2 fl 12/10/18 04:35 Neutrophils % 52.0 % (40.0-80.0) 12/10/18 04:35 Lymphocytes % 37.2 % (20.0-50.0) 12/10/18 04:35 Monocytes % 5.7 % (2.0-10.0) 12/10/18 04:35 Eosinophils % 3.8 % (0.0-5.0) 12/10/18 04:35 Basophils % 1.3 % (0.0-2.0) 12/10/18 04:35 Eos Smear Source URINE 12/09/18 21:22 Eos Smear Total Cells NONE SEEN (NONE SEEN) 12/09/18 21:22 PT 9.9 SECONDS (9.5-11.5) 12/05/18 19:40 INR 0.95 (0.5-1.4) 12/05/18 19:40 PTT (Actin FS) 29.1 SECONDS (26.0-38.0) 12/05/18 19:40 Sodium 138 mEq/L (136-145) 12/10/18 04:35 Potassium 4.1 mEq/L (3.5-5.1) 12/10/18 04:35 Chloride 104 mEq/L (98-107) 12/10/18 04:35 Carbon Dioxide 26.4 mEq/L (21.0-31.0) 12/10/18 04:35 Anion Gap 11.7 (7.0-16.0) 12/10/18 04:35 BUN 25 mg/dL (7-25) 12/10/18 04:35 Creatinine 1.5 mg/dL (0.7-1.3) H 12/10/18 04:35 Est GFR ( Amer) > 60.0 ml/min (>90) 12/10/18 04:35 Est GFR (Non-Af Amer) 51.1 ml/min 12/10/18 04:35 BUN/Creatinine Ratio 16.7 12/10/18 04:35 Glucose 132 mg/dL (70-105) H 12/10/18 04:35 Whole Bld Lactic Acid 0.85 mmol/L (0.60-1.99) 12/05/18 19:40 Uric Acid 7.9 mg/dL (4.4-7.6) H 12/09/18 05:30 Calcium 9.2 mg/dL (8.6-10.3) 12/10/18 04:35 Phosphorus 3.3 mg/dL (2.5-5.0) 12/09/18 05:30 Magnesium 1.8 mg/dL (1.9-2.7) L 12/09/18 05:30 Total Bilirubin 0.4 mg/dL (0.3-1.0) 12/10/18 04:35 AST 9 U/L (13-39) L 12/10/18 04:35 ALT 13 U/L (7-52) 12/10/18 04:35 Alkaline Phosphatase 55 U/L (34-104) 12/10/18 04:35 Creatine Kinase 137 U/L (30-223) 12/05/18 19:40 Troponin I < 0.01 ng/mL (0.01-0.05) L 12/05/18 19:40 Total Protein 7.1 gm/dL (6.0-8.3) 12/10/18 04:35 Albumin 3.7 gm/dL (4.2-5.5) L 12/10/18 04:35 Globulin 3.4 gm/dL 12/10/18 04:35 Albumin/Globulin Ratio 1.1 (1.0-1.8) 12/10/18 04:35 Amylase 164 U/L (29-103) H 12/05/18 19:40 Lipase 133 U/L (11-82) H 12/05/18 19:40 TSH 0.90 uIU/ml (0.34-5.60) 12/05/18 19:21 Urine Source MIDSTREAM 12/05/18 20:15 Urine Color STRAW 12/05/18 20:15 Urine Clarity CLEAR (CLEAR) 12/05/18 20:15 Urine pH 5.5 (4.6 - 8.0) 12/05/18 20:15 Ur Specific [place] 1.025 (1.005-1.030) 12/05/18 20:15 Urine Protein 30 mg/dL (NEGATIVE) H 12/05/18 20:15 Urine Glucose (UA) NEGATIVE mg/dL (NEGATIVE) 12/05/18 20:15 Urine Ketones NEGATIVE mg/dL (NEGATIVE) 12/05/18 20:15 Urine Blood MODERATE (NEGATIVE) H 12/05/18 20:15 Urine Nitrate NEGATIVE (NEGATIVE) 12/05/18 20:15 Urine Bilirubin NEGATIVE (NEGATIVE) 12/05/18 20:15 Urine Urobilinogen 0.2 E.U./dL (0.2 - 1.0) 12/05/18 20:15 Ur Leukocyte Esterase NEGATIVE (NEGATIVE) 12/05/18 20:15 Urine RBC NONE SEEN /hpf (0-5) 12/05/18 20:15 Urine WBC NONE SEEN /hpf (0-5) 12/05/18 20:15 Ur Epithelial Cells RARE /lpf (FEW) 12/05/18 20:15 Urine Bacteria NONE SEEN /hpf (NONE SEEN) 12/05/18 20:15 Ur Random Sodium 116 mmol/L 12/09/18 21:22 Urine Creatinine 125.0 mg/dl (39.0-259.0) 12/09/18 21:22 RPR NONREACTIVE (NONREACTIVE) 12/05/18 19:40 Influenza A (Rapid) NEG FOR INF A 12/08/18 21:51 Influenza B (Rapid) NEG FOR INF B 12/08/18 21:51 - Physical Exam Vitals and I&O: Vital Signs Temp 97.1 F 12/10/18 14:23 Pulse 71 12/10/18 11:48 Resp 18 12/10/18 14:23 BP 130/76 12/10/18 14:23 Pulse Ox 100 12/10/18 14:23 Intake & Output 12/09/18 12/10/18 12/10/18 18:59 06:59 18:59 Intake Total 720 340 Output Total 200 Balance 720 140 Weight (lbs) 115.303 kg 115.666 kg Intake: Intake, IV Amount 100 Levofloxacin 500mg/100mL 100 500 mg In 100 ml @ 100 mls/hr IV Q24HR [facility] Rx#: [id number] Oral 720 240 Output: Urine 200 Other: # Voids 2 3 # Bowel Movements 0 0 Weight Source Bedscale Bedscale Active Medications: Current Medications Docusate Sodium (Colace) 250 mg PO DAILY [facility] Stop: 02/07/19 14:59 Last Admin: 12/10/18 08:44 Dose: 250 mg Hydralazine HCl (Apresoline) 25 mg PO BID [facility] Stop: 02/06/19 19:29 Last Admin: 12/10/18 08:44 Dose: 25 mg Sodium Chloride (Nacl 0.45%) 1,000 mls @ 75 mls/hr IV .[id number] ANGELA Stop: 02/07/19 14:44 Last Admin: 12/10/18 06:40 Dose: Not Given Levofloxacin (Levaquin) 500 mg PO DAILY ONE Stop: 12/10/18 15:01 Losartan Potassium (Cozaar) 100 mg PO DAILY [facility] Stop: 02/06/19 08:59 Last Admin: 12/10/18 08:44 Dose: 100 mg General: Alert, No acute distress HEENT: Atraumatic, Mucous membr. moist/pink Neck: Supple, JVD (flat), +2 carotid pulse wo bruit Cardiovascular: Regular rate, Normal S1, Normal S2 Lungs: Clear to auscultation, Normal air movement Abdomen: Bowel sounds, Soft Extremities: Pulses (normal), no Edema Neurological: Normal gait, Strength at 5/5 X4 ext, Cranial nerves 3-12 NL, Reflexes 2+ Skin: Other (normal) Psych/Mental Status: Mood NL Assessment/Plan - Assessment Assessment: DELIA Elevated post void residual Ess Htn Obesity Dyslipidemia FTT - Plan Plan: Lab - Result Diagrams 12/10/18 04:35 12/10/18 04:35 Cl (Apresoline) 25 mg PO BID ANGELA Stop: 02/06/19 19:29 Last Admin: 12/09/18 08:35 Dose: 25 mg Levofloxacin (Levaquin Pb) 500 mg in 100 mls @ 100 mls/hr IV Q24HR ANGELA Stop: 02/05/19 15:59 Last Infusion: 12/08/18 20:10 Dose: Infused Losartan Potassium (Cozaar) 100 mg PO DAILY ANGELA Stop: 02/06/19 08:59 Last Admin: 12/09/18 08:35 Dose: 100 mg kidney fnc remain stable start gentle hydration Bladder US residual volume 98 ml possible DC Nutritional Asmnt/Malnutr-PDOC - Dietary Evaluation Malnutrition Findings (Please click <Entered> for more info): Nutritional Asmnt/Malnutrition Start: 12/06/18 14: 00 Text: Status: Complete Freq: Protocol: Document 12/06/18 14:00 [email or web address] (Rec: 12/06/18 14:08 [email or web address]) Nutritional Asmnt/Malnutrition Patient General Information Nutritional Screening High Risk Diagnosis failure to thrive, anemia Pertinent Medical Hx/Surgical Hx HTN, dyslipidemia Subjective Information Pt was seen eating lunch at time of visit. Pt doesn't like hospital food but said "don't stop sending it" because he will eat and reports good appetite. Lunch was seen almost finished. Current Diet Order/ Nutrition Support regular Pertinent Medications reviewed Pertinent Labs 12/06 cr 1.4, glucose 124 12/05 glucose 134, ab 4.1 Nutritional Hx/Data Height 1.78 m Height (Calculated Centimeters) 177.8 Current Weight (lbs) 108.862 kg Weight (Calculated Kilograms) 108.9 Weight (Calculated Grams) 121982.2 [place] Body Weight 166 Body Mass Index (BMI) 34.4 Weight Status Obese GI Symptoms GI Symptoms None Last BM not indicated Difficult in: None Food Allergies No Skin Integrity/Comment: intact Current %PO Good (75-100%) Estimated Nutritional Goals BEE in Kcals: Adj wt of IBW Calories/Kcals/Kg 25-30 Kcals Calculated 0427-0428 Protein: Adj wt of IBW Protein g/k.8-1 Protein Calculated 67-83 Fluid: ml 4213-6691 (1ml/kcal) Nutritional Problem No current Nutrition Prob Problem No nutrition diagnosis at this time Malnutrition Alert Is there a minimum of two criteria No selected? Query Text:Check all the applicable criteria. A minimum of two criteria are recommended for diagnosis of either severe or non-severe malnutrition. Malnutrition Related to Morbid Obesity Malnutrition related to morbid obesity No Intervention/Recommendation Comments 1. Continue with regular diet as ordered. 2. Monitor PO intake, wt, labs and skin integrity 3. F/U as moderate risk in 3-5 days Expected Outcomes/Goals Expected Outcomes/Goals 1. PO intake to meet at least 75% of nutritional needs. 2. Wt stability, skin to remain intact, labs to approach WNL. Reviewed by Tamela Fernandez RD
--- NOTE | 2018-12-16 15:32 | Discharge Summary ---
DATE OF DISCHARGE: 12/10/2018 HOSPITAL COURSE: The patient admitted on 12/05/2017 to [facility] and was discharged on 12/10/2017, sent to [facility]. The patient was admitted for generalized weakness, failure to thrive, poor oral intake. Initial diagnosis; emergent hypertension, azotemia, rule out pneumonia, history of hyperlipidemia. The patient was treated with Levaquin and was also given losartan and Vasotec. The patient gradually improved. The patient was also seen by the labor law professor, Dr. Eugene Yi. The patient was in stable condition on 12/10/2018, the patient was sent back to the [facility] where I will be following the patient. CONDITION AT TIME OF DISCHARGE: Stable. MEDICATIONS: See the reconciliation sheet. JOB# [id number]
== END 2018-12-10 16:32 | DRG 682 ==
LOC: ER 19:02 → MSI 20:50
PROVIDERS: ADMIT Internal Medicine Infectious Disease; ATTEND Internal Medicine Infectious Disease
DX: N17.9 Acute kidney failure, unspecified (principal); J18.9 Pneumonia, unspecified organism; E78.5 Hyperlipidemia, unspecified; E11.22 Type 2 diabetes mellitus with diabetic chronic kidney disease; I12.9 Hypertensive chronic kidney disease with stage 1 through stage 4 chronic kidney disease, or unspecified chronic kidney disease; N18.2 Chronic kidney disease, stage 2 (mild); R62.7 Adult failure to thrive; E86.0 Dehydration; D50.9 Iron deficiency anemia, unspecified; E66.01 Morbid (severe) obesity due to excess calories; F17.210 Nicotine dependence, cigarettes, uncomplicated; Z68.36 Body mass index [BMI] 36.0-36.9, adult; Z82.49 Family history of ischemic heart disease and other diseases of the circulatory system
CPT/HCPCS: 36415-UA; 71045-TC; 76770-TC; 76857-TC; 80048-TC; 80053-TC; 81001-TC; 81015-TC; 82043-90; 82150-TC; 82550-TC; 82570-TC; 83036-90; 83605; 83690-TC; 83735-TC; 84100-TC; 84300-TC; 84443-TC; 84484-TC; 84550-TC; 85025-TC; 85610-TC; 85730-TC; 86592-TC; 87086-90; 87804-TC; 93005; J1956; J7030; J7040; Z7610